=== PATIENT | male | born 1985 | race Caucasian/White ===

== ENCOUNTER 2024-08-15 11:34 | Outpatient (OUT) | payer OTHER, SELFPAY ==
--- NOTE | 2024-08-15 12:56 | P.CN_ITS ---
Consult Note: HPI Data of Consult Patient: new to practice Consult date: 08/15/24 Requesting Physician: Jassi Hart MD Primary Care Provider: Bia Torres NP Consult Narrative Reason for consult: back, leg pain Narrative: 39yom who presents for evaluation. longstanding history of low back, leg pain R>L. previous MRIs showed disc displacement, per patient, though several years since this was completed. recently had steroid injection from pcp, on toradol. has engaged in >6 weeks of provider directed home exercises, without benefit. denies adverse med side effects. cc:: CC: Jassi Hart MD Review of Systems ROS Status of ROS 10 or more systems reviewed and unremark able except as noted in history and below Exam Narrative Exam Narrative: Psych-alert and oriented x 3. Attentive and appropriate, constitutionally normal, displays normal mood and affect per situation. There are no obvious deficits in memory, reasoning, or intellect.? Skin-no obvious rashes, bruising, erythema noted to the patient's area of pain.? Extremities- extremities are warm with minimal edema and palpable pulses. Lumbar-tenderness to palpation noted in the lumbar spine and paraspinal musculature. Pain is elicited with flexion, extension, and lateral rotation of the lumbar spine. Range of motion is diminished with these motions. Facet loading maneuvers are positive. Strength-noted to be unremarkable with the exception of decreased strength rated at 4 out of 5 in right quadriceps femoris, anterior tibialis. Sensory-no notable sensory deficits in the bilateral lower extremities to touch or pinprick in all dermatomal distributions with the exception to decreased sensation to the right L4, 5 dermatomal distribution Coordination remains intact.? Gait remains(non-antalgic. Assessment and Plan Assessment and Plan (1) Lumbar stenosis with neurogenic claudication: Plan 39yom who presents for evaluation. failed conservative measures, as noted. given previous imaging and current symptoms, would like to update lumbar mri without contrast. he is in agreement. meds reviewed, will trial flexeril 10mg bid prn. follow up after imaging.
== END 2024-08-15 11:35 | disposition home or self-care (01) ==
PROVIDERS: PCP Nurse Practitioner; Visit Provider Anesthesiology
DX: M48.062 Spinal stenosis, lumbar region with neurogenic claudication (principal)
CPT/HCPCS: G0463

== ENCOUNTER 2024-09-02 06:45 | Outpatient (OUT) | payer OTHER, SELFPAY ==
--- NOTE | 2024-09-02 06:47 | MR_ITS ---
[place] [id number] Patient Name: YESSICA MANCERA MRN: [id number] date: 1985 Sex: M Assigned Patient Location: MRI Current Patient Location: MRI Accession/Order Number: [id number] Exam Date: 09/02/2024 07:16 Report Date: 09/02/2024 08:28 At the request of: YONAS CORDOVA Procedure: MR lumbar spine wo con EXAMINATION: MR lumbar spine wo con HISTORY: Lumbar Stenosis With Neuro Claudication COMPARISON: No relevant comparison available. TECHNIQUE: A variety of imaging planes and parameters were utilized for visualization of suspected pathology. FINDINGS: For the purposes of numbering, sagittal T2 image # 9 extends from the T11 vertebral body superiorly to the S3 level inferiorly. PARASPINAL AREA: Normal with no visible mass. BONES: Normal alignment with no acute fracture or spondylolisthesis CORD/CAUDA EQUINA: Normal caliber, contour, and signal intensity. DISC LEVELS: 12-L1: No significant disc/facet abnormality, spinal stenosis, or foraminal stenosis. L1-L2: Disc space narrowing and disc desiccation. Posterior disc herniation of the protrusion type extending up to 5.1 mm. No definite central or foraminal stenosis L2-L3: Early degenerative disc disease is present without focal protrusion or neural impingement. L3-L4: Moderate degenerative disc disease is present without visible neural impingement. L4-L5: Disc space narrowing and disc desiccation. Posterior central subligamentous disc herniation extending posteriorly 4 mm with inferior migration up to 4.4 mm, sagittal image #8. No central or foraminal stenosis L5-S1: Moderate disc space narrowing and disc desiccation. Posterior broad-based disc herniation extending up to 4 mm. Facet osteoarthropathy. No central canal or right foraminal stenosis. Mild narrowing of the left neural foramen, sagittal image 4 MR/MR lumbar spine wo con IMPRESSION: Degenerative changes with disc herniations at L1-L2, L4-L5 and L5-S1. Mild left L5-S1 foraminal stenosis Electronically authenticated by: BI COOK Date: 09/02/2024 08:28
--- OUTSIDE RECORDS SUMMARY | 2024-09-02 06:47 | XMS_ITS | CCD ---
Author Organization [facility] Care Team Providers Care Nibbler Operator Name Role Phone MISC, DOCTOR Admitting Unavailable MISC, DOCTOR Attending Unavailable RICHA BETHEA Attending Unavailable OLYA LEE Attending Unavailable OLYA LEE Attending Unavailable Adrian Malhotra DO Primary Care Provider Olya Lee NP Unavailable Hailey NGUYEN, Jassi Paris Attending Unavailable Medications Current Medications Medication Drug Class(es) Dates Sig (Normalized) Sig (Original) aspirin 500 mg / caffeine 32.5 mg oral tablet (12 sources) Platelet Aggregation Inhibitor, Nonsteroidal Anti-inflammatory Drug, Central Nervous System Stimulant, Methylxanthine Aspirin-Caffeine (Teresa Back & Body) 500-32.5 MG tablet Take by mouth. Active famotidine 20 mg oral tablet (6 sources) Histamine-2 Receptor Antagonist Start: 09-29-2023 End: 05-30-2024 take 1 tablet by mouth in the morning famotidine (Pepcid) 20 MG tablet Indications: Gastroesophageal reflux disease, unspecified whether esophagitis present Take 1 tablet (20 mg) by mouth in the morning and 1 tablet (20 mg) before bedtime. 60 tablet 09/29/2023 05/30/2024 Discontinued meloxicam 15 mg disintegrating oral tablet (16 sources) Nonsteroidal Anti-inflammatory Drug Start: 08-22-2024 End: 09-21-2024 take 1 tablet by mouth once daily meloxicam (Mobic) 15 MG tablet Indications: Displacement of lumbar intervertebral disc without myelopathy Take 1 tablet (15 mg) by mouth Daily 30 tablet 2 08/22/2024 09/21/2024 Active Start: 06-09-2023 End: 08-22-2024 take 1 tablet by mouth once daily Meloxicam 15 MG tablet dispersible Indications: Displacement of lumbar intervertebral disc without myelopathy Take 15 mg by mouth Daily When the ketorolac tabs are done 30 tablet 2 08/22/2024 Active Nutritional Supplements (CRISTA NT FORMULA PO) (12 sources) Nutritional Supp lements (JOINT FORMULA PO) Take by mouth tamiflex Active Nutritional Supp lements (JOINT FORMULA PO) Take by mouth. Active pantoprazole 40 mg delayed release oral tablet (6 sources) Proton Pump Inhibitor Start: 09-29-2023 End: 09-28-2024 take 1 tablet by mouth before mealtime pantoprazole (Protonix) 40 MG EC tablet Indications: Gastroesophageal reflux disease, unspecified whether esophagitis present Take 1 tablet (40 mg) by mouth in the morning. Take before meals. Do not crush, chew, or split.. 30 tablet 1 09/29/2023 05/30/2024 Discontinued sucralfate 1000 mg oral tablet (6 sources) Aluminum Complex Start: 09-29-2023 End: 05-30-2024 take 1 tablet by mouth at bedtime sucralfate (Carafate) 1 g tablet Indications: Gastroesophageal reflux disease, unspecified whether esophagitis present Take 1 tablet (1 g) by mouth in the morning and 1 tablet (1 g) at noon and 1 tablet (1 g) in the evening and 1 tablet (1 g) before bedtime. Take before meals. 30 tablet 09/29/2023 05/30/2024 Discontinued tiZANidine 4 mg oral tablet (6 sources) Central alpha-2 Adrenergic Agonist Start: 06-09-2023 End: 05-30-2024 tiZANidine (Zanaflex) 4 MG tablet Indications: Displacement of lumbar intervertebral disc without myelopathy Take 1 tablet (4 mg) by mouth as needed at bedtime for muscle spasms. 30 tablet 1 06/09/2023 05/30/2024 Discontinued Completed/Discontinued Medications Medication Drug Class(es) Dates Sig (Normalized) Sig (Original) ketorolac tromethamine 10 mg oral tablet (11 sources) Nonsteroidal Anti-inflammatory Drug, Cyclooxygenase Inhibitor Start: 08-22-2024 End: 08-27-2024 take 1 tablet by mouth every six hours for pain ketorolac (Toradol) 10 MG tablet Indications: Displacement of lumbar intervertebral disc without myelopathy Take 1 tablet (10 mg) by mouth every 6 (six) hours if needed for moderate pain for up to 5 days 20 tablet 08/22/2024 08/27/2024 Start: 08-10-2024 End: 08-15-2024 take 1 tablet by mouth every six hours for pain ketorolac (Toradol) 10 MG tablet Indications: Right-sided low back pain with right-sided sciatica, unspecified chronicity , Displacement of lumbar intervertebral disc without myelopathy Take 1 tablet (10 mg) by mouth every 6 (six) hours if needed for moderate pain for up to 5 days 20 tablet 08/10/2024 08/15/2024 Active Start: 08-10-2024 End: 08-10-2024 30 mg, Intramuscular, Once, On Thu08/10/24 at 1415, For 1 dose, Max daily dose: 120 mg. Max duration: 5 days total Start: 05-30-2024 End: 06-04-2024 ketorolac (Toradol) injectio n 30 mg 1 ml triamcinolone acetonide 40 mg/ml prefilled syringe (6 sources) Corticosteroid Start: 08-10-2024 End: 08-10-2024 triamcinolone acetonide (Kenalog-40) injection 40 mg Start: 08-10-2024 End: 08-10-2024 inject 40 mg by intramuscular injection once 40 mg, Intramuscular, Once, On Thu08/10/24 at 1415, For 1 dose Start: 05-30-2024 triamcinolone acetonide (Kenalog-40) injection 40 mg Start: 05-30-2024 triamcinolone acetonide (Kenalog-40) injection 40 mg Problems Active Problems Problem Classification Problem Date Documented Date Episodic/Chronic Diabetes mellitus without complication (2 sources) Abnormal glucose level; Translations: [Other abnormal glucose] 05-30-2024 Episodic Nutritional deficiencies (2 sources) Vitamin D deficiency; Translations: [Vitamin D deficiency, unspecified] 05-30-2024 Chronic Other non-traumatic joint disorders (2 sources) Chronic pain of left upper limb; Translations: [Pain in left shoulder] 05-30-2024 Episodic Residual codes; unclassified (12 sources) Patient encounter status; Translations: [Encounter for procedure for purposes other than remedying health state, unspecified] 05-05-2024 Episodic Spondylosis; intervertebral disc disorders; other back problems (20 sources) Other intervertebral disc degeneration, lumbar region; Translations: [Displacement of lumbar intervertebral disc without myelopathy] Onset: 02-02-2017 Resolved: 05-30-2024 08-11-2024 Chronic Spondylosis; intervertebral disc disorders; other back problems (6 sources) Acute back pain with sciatica; Translations: [Lumbago co-occurrent with right-side sciatica] 08-11-2024 Episodic Past or Other Problems Problem Classification Problem Date Documented Da te Episodic/Chronic Disorders of lipid metabolism (12 sources) Dyslipidemia; Translations: [Hyperlipidemia, unspecified] Onset: 02-13-2023 Resolved: 05-30-2024 05-30-2024 Chronic Mood disorders (12 sources) Mood disorders Onset: 02-19-2023 02-19-2023 Neoplasms of unspecified nature or uncertain behavior (2 sources) Neoplasm of skin; Translations: [Neoplasm of unspecified behavior of bone, soft tissue, and skin] 05-05-2024 Episodic Other and unspecified benign neoplasm (2 sources) Melanocytic nevus of trunk; Translations: [Melanocytic nevi of trunk] 05-05-2024 Episodic Other and unspecified benign neoplasm (2 sources) Skin lesion; Translations: [Hemangioma of skin and subcutaneous tissue] 05-05-2024 Episodic Other skin disorders (2 sources) Lentiginosis; Translations: [Other melanin hyperpigmentation] 05-05-2024 Episodic Vital Signs Date Time Vital Sign Value Performing Clinician Faci lity 08-10-2024 13:160500 Body height 182.9 cm Olya Lee NP Work Phone: [facility] 08-10-2024 13:16-0500 Body mass index (BMI) [Ratio] 32.96 kg/m2 Olya Lee [employer] NETWORK INSTALLER Work Phone: [facility] 08-10-2024 13:16-0500 Body temperature 98.29 [degF] Olya Lee [employer] INSTALLER Work Phone: [facility] 08-10-2024 13:16-0500 Body weight 110.22 kg Olya Lee [employer] INST[employer]ER Work Phone: [facility] 08-10-2024 13:16-0500 Diastolic blood pressure 74 mm[Hg] Olya Lee [employer]WORK INSTALLER Work Phone: [facility] 08-10-2024 13:16-0500 Heart rate 87 /min Olya Lee [employer] INSTALLER Work Phone: [facility] 08-10-2024 13:16-0500 SaO2% (BldA) [Mass fraction] 97 % Olya Lee [employer] INSTALLER Work Phone: [facility] 08-10-2024 13:16-0500 Systolic blood pressure 120 mm[Hg] Olya Lee [employer] INSTALLER Work Phone: [facility] 05-30-2024 08:25-0400 Body mass index (BMI) [Ratio] 32.55 kg/m2 Olya Lee [employer] INSTALLER Work Phone: [facility] 05-30-2024 08:25-0400 Body temperature 99.19 [degF] Olya Lee [employer]WORK INSTALLER Work Phone: [facility] 05-30-2024 08:25-0400 Body weight 108.86 kg Olya Lee [employer] INSTALLER Work Phone: [facility] 05-30-2024 08:25-0400 Diastolic blood pressure 88 mm[Hg] Olya Lee [employer]WORK INSTALLER Work Phone: [facility] 05-30-2024 08:25-0400 Heart rate 87 /min Olya Lee [employer]WORK INSTALLER Work Phone: [facility] 05-30-2024 08:25-0400 SaO2% (BldA) [Mass fraction] 97 % Olya Lee [employer]WORK INSTALLER Work Phone: [facility] 05-30-2024 08:25-0400 Systolic blood pressure 122 mm[Hg] Olya Lee [employer]WORK INSTALLER Work Phone: [facility] Encounters Encounter Date Encounter Type Care Provider Facility Start: 08-22-2024 End: 08-30-2024 Refill Natalie Adams LPN Work Phone: [facility] Comment on above: Displacement of lumb ar intervertebral disc without myelopathy Start: 08-22-2024 End: 08-22-2024 Refill Olya Lee [employer] INSTALLER Work Phone: [facility] Comment on above: Displacement of lumb ar intervertebral disc without myelopathy Start: 08-15-2024 End: 08-15-2024 Telephone encounter Olya Lee [employer] INSTALLER Work Phone: [facility] Comment on above: Back Pain Start: 08-15-2024 End: 08-15-2024 ambulatory Jassi Hart MD Facility:[facility] Start: 08-10-2024 End: 08-10-2024 Office outpatient visit 15 minutes Olya Lee [employer]WORK INSTALLER Work Phone: [facility] Comment on above: Right-sided low back pain with right-sided sciatica, unspecified chronicity (Primary Dx); Displacement of lumbar intervertebral disc without myelopathy; Acute bilateral low back pain with bilateral sciatica Start: 08-10-2024 End: 08-10-2024 ambulatory OLYA LEE Not Available Start: 05-30-2024 End: 05-30-2024 Bamboo flowsheet Olya Lee [employer] INSTALLER Work Phone: [facility] Start: 05-30-2024 End: 05-30-2024 Bamboo flowsheet Olya Lee [employer]WORK INSTALLER Work Phone: [facility] Start: 05-30-2024 End: 05-30-2024 Patient encounter status Olya Lee [employer] INSTALLER Work Phone: [facility] Start: 05-30-2024 End: 05-30-2024 Periodic preventive med est patient 18-39 yrs Olya Lee [employer]WORK INSTALLER Work Phone: [facility] Comment on above: Wellness examination (Primary Dx); Screening for cardiovascular condition; Blood tests for routine general physical examination; Screening for thyroid disorder; Vitamin D deficiency; Encounter for vitamin deficiency screening; Screening for lipid disorders; Screening for diabetes mellitus (DM); Abnormal glucose; Displacement of lumbar intervertebral disc without myelopathy; Chronic left shoulder pain Start: 05-30-2024 End: 05-30-2024 Physical examination Olya Lee [employer] INSTALLER Work Phone: [facility] Start: 05-30-2024 End: 05-30-2024 ambulatory OLYA LEE Not Available Start: 05-05-2024 End: 05-05-2024 Office outpatient new 30 minutes Richa [place] IMPROVEMENT LEAD-MORTGAGE ADVISOR Work Phone: [facility] Comment on above: Melanocytic nevus of trunk (Primary Dx); Lentigines; Angioma of skin; Neoplasm of skin; Surgery, elective Start: 05-05-2024 End: 05-05-2024 ambulatory RICHA [place] Not Available Start: 05-05-2024 End: 05-05-2024 Bamboo flowsheet Richa [place] IMPROVEMENT LEAD-MORTGAGE ADVISOR Work Phone: [facility] Start: 05-05-2024 End: 05-05-2024 Bamboo flowsheet Richa [place] IMPROVEMENT LEAD-MORTGAGE ADVISOR Work Phone: [facility] Start: 12-01-2019 End: 06-11-2020 Patient encounter procedure [facility] [place]: Plan of Treatment Date Care Activity Detail Author Start: 05-08-2025 End: 05-08-2025 Patient encounter procedure 05/08/2025 2:20 PM EDT Office Visit [facility] [address] [place] [address] Richa Bethea, IMPROVEMENT LEAD-MORTGAGE ADVISOR [address] [place] [address] [facility] Start: 10-05-2024 Influenza vaccination Influenza Vacc ine (#1) [facility] Comment on above: Postponed from 05/01 (Patient Refused) Start: 05-30-2024 End: 05-30-2025 25-hydroxyvitamin D3 [Mass/volume] in Serum or Plasma Vitamin D 25 hydroxy Total Lab Routine Blood tests for routine general physical examination Vitamin D deficiency Encounter for vitamin deficiency screening Expected: 05/30/2024 (Approximate), Expires: 05/30/2025 [facility] Comment on above: Expected: 05/30/2024 (Approximate), Expires: 05/30/2025 Start: 05-30-2024 End: 05-30-2025 CBC W Auto Differential panel - Blood CBC and differential Lab Routine Screening for cardiovascular condition Blood tests for routine general physical examination Expected: 05/30/2024 (Approximate), Expires: 05/30/2025 [facility] Comment on above: Expected: 05/30/2024 (Approximate), Expires: 05/30/2025 Start: 05-30-2024 End: 05-30-2025 Comprehensive metabolic 2000 panel - Serum or Plasma Comprehensive metabolic panel Lab Routine Screening for cardiovascular condition Blood tests for routine general physical examination Expected: 05/30/2024 (Approximate), Expires: 05/30/2025 [facility] Work Phone: Comment on above: Expected: 05/30/2024 (Approximate), Expires: 05/30/2025 Start: 05-30-2024 End: 05-30-2025 Hemoglobin A1c/Hemoglobin.total in Blood Hemoglobin A1c Lab Routine Blood tests for routine general physical examination Screening for diabetes mellitus (DM) Abnormal glucose Expected: 05/30/2024 (Approximate), Expires: 05/30/2025 [facility] Comment on above: Expected: 05/30/2024 (Approximate), Expires: 05/30/2025 Start: 05-30-2024 End: 05-30-2025 Lipid 1996 panel - Serum or Plasma Lipid panel Lab Routine Screening for cardiovascular condition Blood tests for routine general physical examination Screening for lipid disorders Expected: 05/30/2024 (Approximate), Expires: 05/30/2025 [facility] Comment on above: Expected: 05/30/2024 (Approximate), Expires: 05/30/2025 Start: 05-30-2024 End: 05-30-2025 TSH W/REFLEX TO FT4 TSH W/REFLEX TO FT4 Lab Routine Blood tests for routine general physical examination Screening for thyroid disorder Expected: 05/30/2024 (Approximate), Expires: 05/30/2025 [facility] Comment on above: Expected: 05/30/2024 (Approximate), Expires: 05/30/2025 Start: 05-30-2024 End: 05-30-2024 Patient encounter procedure 05/30/2024 8:30 AM EDT Office Visit [facility] [address] [place] [id number] Olya Lee, HARISH [address] [place] [address] Screening for cardiovascular condition; Blood tests for routine general physical examination; Screening for thyroid disorder; Other fatigue; Vitamin D deficiency; Encounter for vitamin deficiency screening; Screening for lipid disorders; Screening for diabetes mellitus (DM); Abnormal glucose [facility] Comment on above: Screening for cardio vascular condition; Blood tests for routine general physical examination; Screening for thyroid disorder; Other fatigue; Vitamin D deficiency; Encounter for vitamin deficiency screening; Screening for lipid disorders; Screening for diabetes mellitus (DM); Abnormal glucose Start: 05-05-2024 End: 05-05-2024 Patient encounter procedure 05/05/2024 2:25 PM EDT Office Visit [facility] [address] [place] [id number] Richa Bethea IMPROVEMENT LEAD-MORTGAGE ADVISOR [address] [place] [address] Arrived [facility] Comment on above: Arrived Start: 05-01-2024 Influenza vaccination Influenza Vacc ine (#1) [facility] Immunizations Immunization Date Immunization Notes Care Provider Fa [facility] 02-13-2023 tetanus toxoid, redu nenita diphtheria toxoid, and acellular pertussis vaccine, adsorbed Richa Bethea IMPROVEMENT LEAD-MORTGAGE ADVISOR Work Phone: [facility] 04-05-2021 Joseph SARS-CoV-2 Richa hudson IMPROVEMENT LEAD-MORTGAGE ADVISOR Work Phone: [facility] Healthcare Payers Date Payer Category Payer Private Health Insurance [employer] [id number] 2024 Unknown [id number] 2023 Unknown [id number] 1984 Unknown [id number] 1984 Unknown [id number] 1984 Unknown [id number] 1984 Unknown [id number] 1984 Unknown [id number] 1959 Unknown [id number] Social History Date Type Detail Facility Start: 02-13-2023 Tobacco smoking status MIIS Never sm oked tobacco [facility] Start: 02-13-2023 Tobacco use and exposure Forme r smokeless tobacco user [facility] Start: 05-30-2024 End: 08-10-2024 Alcoholic beverage intake Current drinker of alcohol (finding) [facility] Start: 05-29-2024 End: 08-10-2024 Alcoholic beverage intake [facility] Start: 05-29-2024 End: 05-30-2024 [id number] Health Literacy [facility] How often do you nee d to have someone help you when you read instructions, pamphlets, or other written material from your doctor or pharmacy [SILS] Never [facility] Do you belong to any clubs or organizations such as mandaeism groups, unions, fraternal or athletic groups, or school groups? Yes [facility] Are you now , , , , never or living with a partner? [facility] How often to you hav e a drink containing alcohol? 2-4 times a month [facility] How many standard dr inks containing alcohol do you have on a typical day? 3 or 4 [facility] How often do you hav e 6 or more drinks on 1 occasion? Never [facility] Do you feel stress - tense, restless, nervous, or anxious, or unable to sleep at night because your mind is troubled all the time - these days [OSQ] Not at all [facility] (I/We) worried [facility] er (my/our) food would run out before (I/we) got money to buy more. Never true [facility] In the past 12 month s, was there a time when you were not able to pay the mortgage or rent on time? No [facility] Start: 06-08-2023 Alcohol Comment 1-2 drinks les s than monthly in the past year [facility] Start: 1985 Sex assigned at Not on file [facility] How often to you hav e a drink containing alcohol? Monthly or less [facility] How many standard dr inks containing alcohol do you have on a typical day? 1 or 2 [facility] Clinical Notes 05-05-2024 to 08-30-2024 Telephone Encounter - Bia Torres NP - 08/30/2024 1:14 PM ESTTelephone Encounter - Bia Torres NP - 08/30/2024 1:14 PM ESTTelephone Encounter - Bia Torres NP - 08/22/2024 3:41 PM EST Note Date & Type Note Facility 08-30-2024 Telephone encount er Note Please put torodal 60mg in , bia gave 08-22-24 rt buttock [facility] 08-30-2024 Miscellaneous Notes Formattin g of this note might be different from the original. Please put torodal 60mg in , bia gave 08-22-24 rt buttock Daughter / in , miserable with back pain. Was doing better this month since he saw . Torodal helped at that time. Phone call to pt, deep searing pain in lumbar area, radiates to rt leg. Is able to walk but uncomfortable. Has not had meloxicam today. As he lives near this provider i will give him torodal IM at home, and then call in 20 tabs of the oral. He is aware to hold the meloxicam. Phone call to the [facility] and they are ok with this.spoke with catherine. Pt reached out to them earlier today, provider not available. documented in this encounter [facility] 08-22-2024 Telephone encount er Note sent [facility] 08-22-2024 Miscellaneous Notes Formattin g of this note might be different from the original. sent documented in this encounter [facility] 08-22-2024 Telephone encount er Note Daughter / in , miserable with back pain. Was doing better this month since he saw . Torodal helped at that time. Phone call to pt, deep searing pain in lumbar area, radiates to rt leg. Is able to walk but uncomfortable. Has not had meloxicam today. As he lives near this provider i will give him torodal IM at home, and then call in 20 tabs of the oral. He is aware to hold the meloxicam. Phone call to the [facility] and they are ok with this.spoke with catherine. Pt reached out to them earlier today, provider not available. [facility] 08-15-2024 Telephone encount er Note Pt was seen today, states he was prescribed a muscle relaxor and their office is going to try and get an updated MRI ordered pending insurance approval [facility] 08-15-2024 Miscellaneous Notes Formattin g of this note might be different from the original. Pt was seen today, states he was prescribed a muscle relaxor and their office is going to try and get an updated MRI ordered pending insurance approval Did he get scheduled with pain management? documented in this encounter [facility] 08-15-2024 Telephone encount er Note Did he get scheduled with pain management? [facility] 08-10-2024 History of Presen t illness Narrative Dereje Ramos is a 39 y.o. male presents with chief complaint of Back Pain HPI: HPI Patient Reported S/S to Nurse: Reviewed [facility]- BACK PAIN Started between shoulder blades C/o lower back pain aggravated by working in the cold 1-2 weeks ago, describes tightness radiating down posterior legs Tried taking 2 tylenol Heat temporary effective 05/30/2024- Torodol IM and kenalog IM in OV, reordered meloxicam at that time for 90 days 11/14/2019 lumbar MR showed multilevel disc bulging, left L5/S1 lateral recess disc herniation, minimal stenosis LABS- 05/2024 WELLNESS- 05/30/2024 DENTIST- none BODY MECHANIC- [facility]/[place] SR ACCOUNT EXECUTIVE- [place] for insoles LAW CLERK- Richa Bethea/[facility] SUBJECTIVE: MEDICATIONS: Current Outpatient Medications Medication Instructions Aspirin-Caffeine (Teresa Back & Body) 500-32.5 MG tablet Take by mouth. ketorolac (TORADOL) 10 mg, Oral, Every 6 hours PRN Meloxicam 15 mg, Oral, Daily, When the ketorolac tabs are done Nutritional Supplements (JOINT FORMULA PO) Take by mouth tamiflex ALLERGIES: No Known Allergies SURGICAL HISTORY: Past Surgical History: Procedure Laterality Date APPENDECTOMY [address] Arceo FAMILY HISTORY: Family History Problem Relation Name Age of Onset No Known Problems Brother Heart attack Maternal Grandfather No Known Problems Daughter Melanoma Neg Hx SOCIAL HISTORY: Social History Tobacco Use Smoking status: Never Smokeless tobacco: Former Vaping Use Vaping status: Never Used Substance Use Topics Alcohol use: Yes Alcohol/week: 4.0 standard drinks of alcohol Types: 4 Cans of beer per week Comment: 1-2 drinks less than monthly in the past year Drug use: Never Depression: Not at risk (05/30/2024) PHQ-2 PHQ-2 Score: 0 REVIEW OF SYMPTOMS: Review of Systems Constitutional: Negative for activity change, appetite change, chills, diaphoresis, fatigue and fever. Respiratory: Negative for cough, chest tightness, shortness of breath and wheezing. Cardiovascular: Negative for chest pain, palpitations and leg swelling. Gastrointestinal: Negative for diarrhea. Genitourinary: Negative for difficulty urinating and dysuria. Denies incontinence of bowel or bladder Psychiatric/Behavioral: Negative. OBJECTIVE: Visit Vitals BP 120/74 (BP Location: Right arm, Patient Position: Sitting, BP Cuff Size: Large adult) Pulse 87 Temp 98.3 F (Tympanic) Ht 6' Wt 243 lb SpO2 97% BMI 32.96 kg/m Smoking Status Never BSA 2.36 m Physical Exam Vitals and nursing note reviewed. Constitutional: Appearance: Normal appearance. He is not ill-appearing. HENT: Head: Normocephalic and atraumatic. Cardiovascular: Rate and Rhythm: Normal rate and regular rhythm. Pulses: Normal pulses. Heart sounds: Normal heart sounds. Pulmonary: Effort: Pulmonary effort is normal. No respiratory distress. Breath sounds: Normal breath sounds. No wheezing. Chest: Chest wall: No tenderness. Musculoskeletal: General: Tenderness present. Thoracic back: Normal. Lumbar back: Spasms and tenderness present. No swelling, edema, deformity, signs of trauma, lacerations or bony tenderness. Normal range of motion. Right lower leg: No edema. Left lower leg: No edema. Comments: Flexion at waist wnl-pain with prolonged sitting or standing and extreme flexion Skin: General: Skin is warm and dry. Neurological: General: No focal deficit present. Mental Status: He is alert and oriented to person, place, and time. Mental status is at baseline. Sensory: No sensory deficit. Motor: No weakness. Coordination: Coordination normal. Gait: Gait normal. Psychiatric: Mood and Affect: Mood normal. Behavior: Behavior normal. Thought Content: Thought content normal. Judgment: Judgment normal. ASSESSMENT AND PLAN: Assessment/Plan Diagnoses and all orders for this visit: Right-sided low back pain with right-sided sciatica, unspecified chronicity - ketorolac (Toradol) injection 30 mg - triamcinolone acetonide (Kenalog-40) injection 40 mg - ketorolac (Toradol) 10 MG tablet; Take 1 tablet (10 mg) by mouth every 6 (six) hours if needed for moderate pain for up to 5 days Heat Massage Tens unit Displacement of lumbar intervertebral disc without myelopathy - Ambulatory referral to Pain Medicine; Future - ketorolac (Toradol) injection 30 mg - triamcinolone acetonide (Kenalog-40) injection 40 mg - ketorolac (Toradol) 10 MG tablet; Take 1 tablet (10 mg) by mouth every 6 (six) hours if needed for moderate pain for up to 5 days Acute bilateral low back pain with bilateral sciatica - Ambulatory referral to Pain Medicine; Future Follow up in about 3 months (around 11/08/2024). documented in this encounter [facility] 05-30-2024 History of Presen t illness Narrative Dereje Ramos is a 38 y.o. male presents with chief complaint of Shoulder Pain and wellness HPI: HPI Patient Reported S/S to Nurse: Reviewed [facility]- SHOULDER PAIN C/o left shoulder pain x 2 months, describes as a sharp burning pain. Reports having full ROM but with pain Denies radiation of pain, numbness, tingling Tried ice without improvement Has not tried OTC meds for pain REFILL Requesting meloxicam for back pain. States he only takes it in the winter when the pain is worse Walked to lab after appt LABS- 01/2023; willing to update today WELLNESS- 05/30/2024 DENTIST- none BODY MECHANIC- Daria/Brandon SR ACCOUNT EXECUTIVE- Ute for insoles LAW CLERK- Richa Bethea/[facility] SUBJECTIVE: MEDICATIONS: Current Outpatient Medications Medication Instructions Aspirin-Caffeine (Te[facility]) 500-32.5 MG tablet Oral Meloxicam 15 mg, Oral, Daily, When the ketorolac tabs are done Nutritional Supplements (JOINT FORMULA PO) Oral ALLERGIES: No Known Allergies SURGICAL HISTORY: Past Surgical History: Procedure Laterality Date APPENDECTOMY 2011 [address] INJE[address] Arceo FAMILY HISTORY: Family History Problem Relation Name Age of Onset No Known Problems Brother Heart attack Maternal Grandfather No Known Problems Daughter Melanoma Neg Hx SOCIAL HISTORY: Social History Tobacco Use Smoking status: Never Smokeless tobacco: Former Vaping Use Vaping status: Never Used Substance Use Topics Alcohol use: Yes Alcohol/week: 4.0 standard drinks of alcohol Types: 4 Cans of beer per week Comment: 1-2 drinks less than monthly in the past year Drug use: Never Depression: Not at risk (05/30/2024) PHQ-2 PHQ-2 Score: 0 REVIEW OF SYMPTOMS: Review of Systems Constitutional: Negative for activity change, appetite change, fatigue and fever. HENT: Negative for hearing loss, trouble swallowing and voice change. Eyes: Negative for visual disturbance. Respiratory: Negative for cough, chest tightness, shortness of breath and wheezing. Cardiovascular: Negative for chest pain, palpitations and leg swelling. Gastrointestinal: Negative for constipation, diarrhea, nausea and vomiting. Genitourinary: Negative for difficulty urinating, frequency and urgency. Musculoskeletal: Positive for arthralgias. Negative for gait problem and myalgias. Neurological: Negative for dizziness, syncope, weakness, light-headedness, numbness and headaches. Psychiatric/Behavioral: Negative for agitation, behavioral problems, confusion, decreased concentration, dysphoric mood, hallucinations, self-injury, sleep disturbance and suicidal ideas. The patient is not nervous/anxious and is not hyperactive. Endocrine: Negative for cold intolerance, heat intolerance, polydipsia, polyphagia and polyuria. Allergic/Immunologic: Negative for environmental allergies. OBJECTIVE: Visit Vitals BP 122/88 Pulse 87 Temp 99.2 F (Tympanic) Wt 240 lb SpO2 97% BMI 32.55 kg/m Smoking Status Never BSA 2.35 m Physical Exam Vitals and nursing note reviewed. Constitutional: Appearance: Normal appearance. He is normal weight. HENT: Head: Normocephalic and atraumatic. Right Ear: Tympanic membrane, ear canal and external ear normal. Left Ear: Tympanic membrane, ear canal and external ear normal. Nose: Nose normal. Mouth/Throat: Mouth: Mucous membranes are moist. Pharynx: Oropharynx is clear. No oropharyngeal exudate or posterior oropharyngeal erythema. Eyes: Extraocular Movements: Extraocular movements intact. Conjunctiva/sclera: Conjunctivae normal. Pupils: Pupils are equal, round, and reactive to light. Cardiovascular: Rate and Rhythm: Normal rate and regular rhythm. Pulses: Normal pulses. Heart sounds: Normal heart sounds. No murmur heard. No friction rub. No gallop. Pulmonary: Effort: Pulmonary effort is normal. No respiratory distress. Breath sounds: Normal breath sounds. No wheezing. Chest: Chest wall: No tenderness. Abdominal: General: Abdomen is flat. Bowel sounds are normal. There is no distension. Palpations: Abdomen is soft. Tenderness: There is no abdominal tenderness. There is no guarding. Musculoskeletal: General: No swelling, deformity or signs of injury. Normal range of motion. Right shoulder: Normal. Left shoulder: Tenderness present. No swelling, deformity or crepitus. Normal range of motion. Normal strength. Normal pulse. Cervical back: Normal range of motion and neck supple. Right lower leg: No edema. Left lower leg: No edema. Lymphadenopathy: Cervical: No cervical adenopathy. Skin: General: Skin is warm and dry. Capillary Refill: Capillary refill takes less than 2 seconds. Coloration: Skin is not jaundiced. Findings: No bruising, erythema or rash. Neurological: General: No focal deficit present. Mental Status: He is alert and oriented to person, place, and time. Mental status is at baseline. Cranial Nerves: No cranial nerve deficit. Sensory: No sensory deficit. Motor: No weakness. Coordination: Coordination normal. Gait: Gait normal. Psychiatric: Mood and Affect: Mood normal. Behavior: Behavior normal. Thought Content: Thought content normal. Judgment: Judgment normal. ASSESSMENT AND PLAN: Assessment/Plan Diagnoses and all orders for this visit: Wellness examination Wellness performed at office visit today. Height, weight, BMI, problem list, and immunizations records reviewed. Dental care discussed with patient. Encouraged annual vision screenings and semi-annual dental care. Encouraged to eat a diet that is rich in plant-based foods and lean protein. Encouraged regular periods of exercise. Limit or eliminate junk food and sources of excess calories. Encouraged to maintain open communication with provider regarding any changes in condition. Encouraged 150 minutes of exercise weekly or amount appropriate to current level of function. Discussed family/friend/social support and importance of maintaining emotional connections. Follow up as discussed. Patient verbalized understanding of importance of keeping open communication with health care providers. Screening for cardiovascular condition - Comprehensive metabolic panel; Future - CBC and differential; Future - Lipid panel; Future Blood tests for routine general physical examination - Comprehensive metabolic panel; Future - TSH W/REFLEX TO FT4; Future - CBC and differential; Future - Vitamin D 25 hydroxy Total; Future - Lipid panel; Future - Hemoglobin A1c; Future Screening for thyroid disorder - TSH W/REFLEX TO FT4; Future Vitamin D deficiency - Vitamin D 25 hydroxy Total; Future Encounter for vitamin deficiency screening - Vitamin D 25 hydroxy Total; Future Screening for lipid disorders - Lipid panel; Future Screening for diabetes mellitus (DM) - Hemoglobin A1c; Future Abnormal glucose - Hemoglobin A1c; Future Displacement of lumbar intervertebral disc without myelopathy Comments: kenalog and toradol IM, then torodal pills, muscle relaxer at bedtime. 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 documented in this encounter [facility] 05-05-2024 History of Presen t illness Narrative Images from the original note were not included. Skin Check Location: Patient requests a full body skin examination Dermatologic history: no history of skin cancer, no history of atypical moles, no family history of melanoma Last visit: first skin exam New patient Lesions: Location: face Duration: less than 6 months Quality: denies pain, denies itch, denies bleeding Modifying factors: none Associated symptoms: white in color Treatments: none Lesion # 2: Location: chest and back Duration: years Quality: denies pain, denies itch, denies bleeding Modifying factors: none Associated symptoms: red spots Treatments: none Location #3:right hand 4 th digit Duration: since yesterday Quality: painful to touch Modifying factors: Daughter drop a glass, patient thinks he has glass or a piece of metal in his finger Associated symptoms: scrap Treatments: alcohol All pertinent medical history, medications, and allergies were reviewed. General Exam: alert , oriented to person, place, and time , normal affect, well appearing Unaccompanied Areas not examined despite medical recommendation: Scalp, Examined Right leg Examined Head, Face Examined Left leg Examined Neck Examined Right foot Examined Chest Examined Left foot Examined Back Examined Buttocks Examined Abdomen Examined Digits,nails: Examined Right arm Examined Left arm Examined Lymphatics: Not examined Hands Examined 1. Melanocytic nevus of trunk Torso - Posterior (Back) Scattered benign appearing, regular brown to light brown melanocytic papules and macules with similar morphology Counseled regarding these benign growths. Rarely, a nevus can develop into malignant melanoma, so any changing nevi should be promptly re-evaluated. 2. Lentigines (3) Left Shoulder - Anterior, Right Shoulder - Anterior, Torso - Posterior (Back) Scattered granaod macules in sun-exposed areas. The patient was informed that lentigines are benign pigmented lesions that occur on sun-exposed and sun-damaged skin. No treatment is necessary. Recommended regular use of broad spectrum sunscreen SPF 30 or higher 3. Angioma of skin (3) Abdomen (Lower Torso, Anterior), Chest (Upper Torso, Anterior), Torso - Posterior (Back) Scattered noonan-red papule(s). The patient was informed that angiomas are benign growths on the the skin. No treatment is necessary. 4. Neoplasm of skin Right Hand - Anterior Scrap noted No foreign object noted today. If area fails to resolve follow up in office. 5. Surgery, elective Head - Anterior (Face) Small white or yellow papules. Reassure, benign. Discussed milia may self resolve or they can be removed for a cosmetic fee $30.00. Milial Removal Indication: Milia Location: left cheek and right cheek Preparation/Procedure: Area cleansed with alcohol, Milia extracted with Schamberg comedone extractor. Post Procedure: Area cleansed. Next Visit: 1 year skin exam documented in this encounter [facility] Evaluation note Diagnosis Right-sided low back pain with right-sided sciatica, unspecified chronicity- Primary Displacement of lumbar intervertebral disc without myelopathy Acute bilateral low back pain with bilateral sciatica documented [facility]* Diagnosis Melanocytic nevus of trunk- Primary Benign neoplasm of skin of trunk, except scrotum Lentigines Angioma of skin Neoplasm of skin Surgery, elective Unspecified elective surgery for purposes other than remedying health states documented in this encounter [facility]* Diagnosis Wellness examination- Primary Screening for cardiovascular condition Screening for other and unspecified cardiovascular conditions Blood tests for routine general physical examination Laboratory examination ordered as part of a routine general medical examination Screening for thyroid disorder Vitamin D deficiency Encounter for vitamin deficiency screening Screening for lipid disorders Screening for diabetes mellitus (DM) Screening for diabetes mellitus Abnormal glucose Displacement of lumbar intervertebral disc without myelopathy Chronic left shoulder pain Pain in joint, shoulder region documented [facility] this [facility] Diagnosis Displacement of lumbar intervertebral disc without myelopathy documented [facility]* Diagnosis Displacement of lumbar intervertebral disc without myelopathy documented [facility]* Diagnosis Displacement of lumbar intervertebral disc without myelopathy- Primary documented in this encounter [facility] Summary Purpose Family History No Family History Records FoundNo Family History Records FoundNo Family History Records Found Advance Directives No Advanced Directives Records FoundNo Advanced Directives Records FoundNo Advanced Directives Records Found Additional Source Comments (unrecognized sect ion and content) No Status Records FoundNo Status Records FoundNo Status Records Found INFORMATION SOURCE (unrecogn ized section and content) DATE CREATED AUTHOR 06/12/2020 [facility] DATE CREATED AUTHOR AUTHOR'S ORGANIZ ATION 08/13/2024 [facility] DATE CREATED AUTHOR AUTHOR'S ORGANIZ ATION 08/24/2024 [facility] Reason for Visit (unrecogniz ed section and content) Reason Comments Back Pain Reason Onset Date Comments Back Pain 08/15/2024 Reason Comments Suspicious Skin Lesion Skin Check Reason Comments Shoulder Pain wellness Reason Onset Date Comments Med Refill 08/22/2024 Reason Comments Med Change Request Care Teams (unrecognized sec tion and content) Nibbler Operator Relationship Specialty Start Date End Date Adrian Malhotra DO [address] [place], [place] [id number] PCP - General Family Medicine 02/13/23 Olya Lee, DISH NETWORK INSTALLER [address] [place] [address] Nurse Practitioner Family Medicine 02/13/23 Nibbler Operator Relationship Specialty Start Date End Date Adrian Malhotra DO [address] [place] [address] PCP - General Family Medicine 02/13/23 Olya Lee, DISH NETWORK INSTALLER [address] [place] [address] Nurse Practitioner Family Medicine 02/13/23 Nibbler Operator Relationship Specialty Start Date End Date Adrian Malhotra DO [address] [place] [address] PCP - General Family Medicine 02/13/23 Olya Lee, DISH NETWORK INSTALLER [address] [place] [address] Nurse Practitioner Family Medicine 02/13/23 Nibbler Operator Relationship Specialty Start Date End Date Adrian Malhotra DO [address] [place] [address] PCP - General Family Medicine 02/13/23 Olya Lee, DISH NETWORK INSTALLER [address] [place] [address] Nurse Practitioner Family Medicine 02/13/23 Nibbler Operator Relationship Specialty Start Date End Date Adrian Malhotra DO [address] [place] [address] PCP - General Family Medicine 02/13/23 Olya Lee, DISH NETWORK INSTALLER [address] [place] [address] Nurse Practitioner Family Medicine 02/13/23 Nibbler Operator Relationship Specialty Start Date End Date Adrian Malhotra DO [address] [place], [place] [id number] PCP - General Family Medicine 02/13/23 Olya Lee, HARISH [address] [place] [address] Nurse Practitioner Family Medicine 02/13/23 FOR RECORDS PERTAINING TO PATIENTS WHO ARE OR HAVE BEEN ENROLLED IN A CHEMICAL DEPENDENCY/SUBSTANCEABUSE PROGRAM, SOME INFORMATION MAY BE OMITTED. This clinical summary was aggregated from multiple sources. Caution should be exercised in using it in the provision of clinical care. This summary normalizes information from multiple sources, and as a consequence, information in this document may materially change the coding, format and clinical context of patient data. In addition, data may be omitted in some cases. CLINICAL DECISIONS SHOULD BE BASED ON THE PRIMARY CLINICAL RECORDS. [employer] provides no warranty or guarantee of the accuracy or completeness of information in this document.
--- NOTE | 2024-09-02 06:49 | XR_ITS ---
The [address] [address] Patient Name: YESSICA MANCERA MRN: [id number] date: 1985 Sex: M Assigned Patient Location: MRI Current Patient Location: MRI Accession/Order Number: [id number] Exam Date: 09/02/2024 06:50 Report Date: 09/02/2024 07:11 At the request of: ANDRIUS GIEDRAITIS Procedure: XR foreign body eye CATERINA EXAMINATION: XR foreign body eye CATERINA HISTORY: Foreign Body Eye COMPARISON: No relevant comparison available. FINDINGS: ORBITS: Negative for a metallic foreign body. OTHER: Soft tissue attenuation left maxillary sinus. XR/XR foreign body eye CATERINA IMPRESSION: No metallic foreign body in the orbits. Electronically authenticated by: BI COOK Date: 09/02/2024 07:11
== END 2024-09-02 06:46 | disposition home or self-care (01) ==
LOC: MRI 06:45
PROVIDERS: PCP Nurse Practitioner; Visit Provider Anesthesiology
DX: M48.062 Spinal stenosis, lumbar region with neurogenic claudication (principal); M51.369 Other intervertebral disc degeneration, lumbar region without mention of lumbar back pain or lower extremity pain
CPT/HCPCS: 70030; 72148

== ENCOUNTER 2024-09-05 11:26 | Outpatient (OUT) | payer OTHER, SELFPAY ==
--- NOTE | 2024-09-05 12:52 | P.CN_ITS ---
Consult Note: HPI Data of Consult Patient: known to practice within the last 3 years Consult date: 09/05/24 Requesting Physician: Jassi Hart MD Primary Care Provider: Bia Torres NP Consult Narrative Reason for consult: low back pain Narrative: 39yom who presents for assessment. states that he is feeling ok today, but pain can flare up at random and be very intense. imaging reviewed, shows multilevel lumbar disc displacement, particularly at l4-5 and l5-s1. continues to stay active and exercise. tried flexeril, does not have much relief. cc:: CC: Jassi Hart MD Review of Systems ROS Status of ROS 10 or more systems reviewed and unremark able except as noted in history and below Meds Home Medications and Allergies Home Medications ?Medication ?Instructions ?Recorded ?Confirmed ?Type cyclobenzaprine 10 mg tablet 10 mg PO BID 08/15/24 08/15/24 History loratadine 10 mg tablet (Claritin) 10 mg PO DAILY PRN allergy symptoms 08/15/24 08/15/24 History Allergies Allergy/AdvReac Type Severity Reaction Status Date / Time No Known Drug Allergies Allergy Verified 08/15/24 15:03 Exam Narrative Exam Narrative: Psych-alert and oriented x 3. Attentive and appropriate, constitutionally normal, displays normal mood and affect per situation.? There are no obvious deficits in memory, reasoning, or intellect.? Skin-no obvious rashes, bruising, erythema noted to the patient's area of pain. Extremities- extremities are warm with minimal edema and palpable pulses. Lumbar-no significant tenderness to palpation noted in the lumbar spine and paraspinal musculature.? Pain is elicited with extension, and lateral rotation of the lumbar spine. Range of motion is slightly diminished with these motions due to pain. Coordination remains intact.? Gait remains non-antalgic. Assessment and Plan Assessment and Plan (1) Lumbar disc displacement without myelopathy: Plan 39yom who presents for assessment. notes intermittent symptoms. discussed that given his multilevel disc displacement, he may benefit from surgical evaluation. he expressed understanding and would like to be referred to [facility]. provided this referral. meds reviewed, no additional meds. follow up as needed.
== END 2024-09-05 11:27 | disposition home or self-care (01) ==
LOC: PM 11:26
PROVIDERS: PCP Nurse Practitioner; Visit Provider Anesthesiology
DX: M51.26 Other intervertebral disc displacement, lumbar region (principal)
CPT/HCPCS: G0463

== ENCOUNTER 2025-06-05 14:23 | Emergency (ER) | payer OTHER, SELFPAY ==
--- OUTSIDE RECORDS SUMMARY | 2025-06-05 14:33 | XMS_ITS | Clinical Summary ---
Author Organization [facility] Address [id number] [address] [place] [address] Care Team Providers Care Insole Coverer Name Role Phone MaryaAdrian Primary Care Provider [phone] Allergies No known active allergies Medications meloxicam (MOBIC) 7.5 mg tablet Take 7.5 mg by mouth daily as needed. Active predniSONE (DELTASONE) 10 mg tablet TAKE 4 TABLETS BY MOUTH for 2 (TWO) days then TAKE 3 TABLETS for 2 (TWO) days then TAKE 2 TABLETS for 2 (TWO) days then TAKE 1 TABLET for 2 11/13/2019 Active ketorolac (TORADOL) 10 mg tablet Take 10 mg by mouth every 6 (six) hours as needed. 11/13/2019 Active gabapentin (NEURONTIN) 300 mg capsuleIndicatio ns:Lumbosacral spondylosis without myelopathy Take 1 capsule (300 mg total) by mouth 3 (three) times a day. 90 capsule 1 11/17/2019 Active Active Problems Problem Noted Date Diagnosed Date Spondylosis without myelopat hy or radiculopathy, lumbar region 02/02/2017 Other intervertebral disc displacement, lumbar r egion 02/02/2017 Social History Tobacco Use Types Packs/Day Years Used Date Smoking Tobacco: Never Smokeless Tobacco: Never Alcohol Use Standard Drinks/Week Comments Yes 1 (1 standard drink = 0.6 oz pur e alcohol) drinks beer occasionally Childcare Answer Date Recorded Childcare Unknown 02/09/2019 Employment Answer Date Recorded Employment Unknown 02/09/2019 Purpose - Life Answer Date Recorded Purpose and direction in life Unknown Sex and Gender Information Value Date Recorded Sex Assigned at Not on file Legal Sex Male 11:37 AM EDT Gender Identity Not on file Sexual Orientation Not on file Last Filed Vital Signs Vital Sign Reading Time Taken Comments Blood Pressure 129/78 11/17/2019 8:11 AM EDT Pulse 76 11/17/2019 8:11 AM EDT Temperature - - Respiratory Rate 20 11/17/2019 8:11 AM EDT Oxygen Saturation - - Inhaled Oxygen Concentration - - Weight 108.2 kg (238 lb 9.6 oz) 11/17/2019 8:11 AM EDT Height 182.9 cm (6') 11/17/2019 8:11 AM EDT Body Mass Index 32.36 11/17/2019 8:11 AM EDT Plan of Treatment Health Maintenance Due Date Last Done Comments Depression Screening 1996 Tobacco Screening 1996 Adult BMI Screening 2002 DTaP,Tdap and Td Vaccines (2 - Td or Tdap) 01/29/2022 01/30/2012 Influenza Vaccine 05/01/2025 Medical Devices Not on file Insurance [address] [place] [address] [facility] Care Teams Insole Coverer Relationship Specialty Start Date End Date Adrian Malhotra DO [address] [place] [address] PCP - General Internal Medicine 11/17/19
--- OUTSIDE RECORDS SUMMARY | 2025-06-05 14:34 | XMS_ITS | Encounter Summary ---
Author Organization [facility] Address [address] [place] [address] Care Team Providers Care Transportation Assistant Name Role Phone Marya, Adrian Perez DO Primary Care Provider [phone] Aura Nixon NP Unavailable [phone] Encounter Details Date Type Department Care Team (Late st Contact Info) Description 06/08/2023 Abstract [facility] [address] [place] [id number] Bia Torres NP [address] [place] [address] Social History Tobacco Use Types Packs/Day Years Used Date Smoking Tobacco: Never Smokeless Tobacco: Former Tobacco Cessation:Counseling Given: Not Answered Alcohol Use Standard Drinks/Week Comments Yes 0 (1 standard drink = 0.6 oz pure alcohol) 1-2 drinks less than monthly in the past year AUDIT-C Answer Date Recorded Q1: How often do you have a drink containing alc ohol? Monthly or less 02/13/2023 Q2: How many drinks containi ng alcohol do you have on a typical day when you are drinking? 1 or 2 02/13/2023 Q3: How often do you have si x or more drinks on one occasion? Never 02/13/2023 PHQ-2 Answer Date Recorded Patient Health Questionnaire-2 Score 0 06/09/2023 Sex and Gender Information Value Date Recorded Sex Assigned at Not on file Legal Sex Male 7:12 PM EDT Gender Identity Not on file Sexual Orientation Not on file documented as of this encounter Functional Status * Over the past 2 weeks, how often have you been bothered by any of the following problems? Question Answer Date of Assessment Author Little interest or pleasure in doing things Not at all 06/09/2023 2:27 PM EDT Natalie Adams LPN Feeling down, depressed, or hopeless Not at all 06/09/2023 2:27 PM EDT Natalie Adams LPN Patient Health Questionnaire -2 Score 0 06/09/2023 2:27 PM EDT Natalie Adams LPN documented as of this encounter Plan of Treatment Not on file documented as of this encounter Visit Diagnoses Not on filedocumented in this encounter Additional Health Concerns Assessment Noted Time PHQ-9 Depression Total Score: 8 02/20/20 23 8:03 AM EDT documented as of this encounter Care Teams Transportation Assistant Relationship Specialty Start Date End Date Adrian Malhotra DO [address] [place], [place] [id number] PCP - General Family Medicine 02/13/23 Aura Nixon, HARISH [address] [place], [place] [id number] Nurse Practitioner Family Medicine 02/13/23 documented as of this encounter
--- OUTSIDE RECORDS SUMMARY | 2025-06-05 14:34 | XMS_ITS | Clinical Summary ---
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 Active cyclobenzaprine (FLEXERIL) 10 mg tablet Take 1 tablet by mouth every 12 hours. Active meloxicam (MOBIC) 15 mg tablet Take 15 mg by mouth once daily. Active OTC PRODUCT Lisandro Loss Supplement Active OTC PRODUCT Testosterone Activ e Active Problems No known active problems Social History Tobacco Use Types Packs/Day Years Used Date Smoking Tobacco: Never Smokeless Tobacco: Current Tobacco Cessation:Ready to Q uit: Not Asked; Counseling Given: Not Answered Comments:Nicotine Pouch PHQ-2 Answer Date Recorded PHQ-2 score 0 12/20/2024 Area Deprivation Index Answer Date Andi rded National Score (1-100), lower number is lower ri sk 64 10/31/2024 State Score (1-10), lower number is lower risk 4 10/31/2024 Data from: https://www.neigh borhoodatlas.medicine.[facility].edu/. Last address used for calculation [address] 10/31/2024 Sex and Gender Information Value Date Recorded Sex Assigned at Not on file Legal Sex Male 7:30 AM EST Gender Identity Not on file Sexual Orientation Not on file Last Filed Vital Signs Vital Sign Reading Time Taken Comments Blood Pressure 121/80 12/21/2024 12:42 PM EDT Pulse 76 12/21/2024 12:42 PM EDT Temperature - - Respiratory Rate - - Oxygen Saturation 98% 12/21/2024 12: 42 PM EDT Inhaled Oxygen Concentration - - Weight 108.4 kg (238 lb 15.7 oz) 2024 12:42 PM EDT Height 182.9 cm (6') 12/21/2024 12:42 PM EDT Body Mass Index 32.41 12/21/2024 12:42 PM EDT Plan of Treatment Health Maintenance Due Date Last Done Comments Anxiety Screening 2002 Depression Screening 2002 HIV Screening 2002 Hepatitis C Screening 2002 Hepatitis B Vaccine (1 of 3 - 19+ 3-dose series) 07/08 HPV Vaccine (1 - 3-dose SCDM series) 2011 Lipid Screening 2019 Covid-19 Vaccine (2 - season) 05/01/202501/2021 Influenza Vaccine (#1) 2025 DTaP,Tdap,Td Vaccine (2 - Td or Tdap) 02/13/2033 Insurance Care Teams Oil Extractor Relationship Specialty Start Date End Date Jassi Hart MD [address] [place] [address] [address] [place] [address] Pain Management 09/06/24
--- OUTSIDE RECORDS SUMMARY | 2025-06-05 14:37 | XMS_ITS | CCD ---
Author Organization [facility] Care Team Providers Care Director Of First Impressions Name Role Phone MISC, DOCTOR Admitting Unavailable MISC, DOCTOR Attending Unavailable RICHA BETHEA Attending Unavailable OLYA NIXON Attending Unavailable OLYA NIXON Attending Unavailable Adrian Malhotra DO Primary Care Provider Hussain HISTORY CARD CLERK, Olya Dawson Unavailable Hailey NGUYEN, Jassi Paris Attending Unavailable Giantony NGUYEN, Andrius Veli Attending Unavailable Giantony NGUYEN, Andrius Unavailable [phone] DESTINY BRAUN Attending Unavailable HAILEY, ADELERI Referring Unavailable PHILIP MARIN Attending Unavailable DESTINY BRAUN Referring Unavailable Medications Current Medications Medication Drug Class(es) Dates Sig (Normalized) Sig (Original) aspirin 500 mg / caffeine 32.5 mg oral tablet (14 sources) Platelet Aggregation Inhibitor, Nonsteroidal Anti-inflammatory Drug, Central Nervous System Stimulant, Methylxanthine aspirin-caffeine (DELPHINE BACK AND BODY) 500-32.5 mg tab Take by mouth as directed. Active cyclobenzaprine hydrochloride 10 mg oral tablet (2 sources) Muscle Relaxant Start: 08-15-2024 take 1 tablet by mouth every twelve hours cyclobenzaprine (FLEXERIL) 10 mg tablet Take 1 tablet by mouth every 12 hours. 08/15/2024 Active famotidine 20 mg oral tablet (6 [...] Discontinued meloxicam 15 mg disintegrating oral tablet (18 sources) Nonsteroidal Anti-inflammatory Drug Start: 08-22-2024 End: [...] (JOINT FORMULA PO) Take by mouth. Active OTC PRODUCT (4 sources) OTC PRODUCT Lisandro Loss Supplement Active OTC PRODUCT Test osterone Active pantoprazole 40 mg delayed release oral [...] Spondylosis; intervertebral disc disorders; other back problems (10 sources) Acute back pain with sciatica; Translations: [Lumbago co-occurrent with right-side sciatica] Onset: 12-21-2024 08-11-2024 Episodic Past or Other Problems Problem [...] Lentiginosis; Translations: [Other melanin hyperpigmentation] 05-05-2024 Episodic Results Test Name Value Interpretation Reference Range Facil ity CNOVon 12-21-2024 CNOV Office Visit ([facility] ) -------- FIORDALIZADEREJE Galvin ([id number]) 1985 M Date Time Provider Department 12/21/24 1:00 PM PHILIP MARIN [facility] During your visit today, we recorded the following information about you: Pulse Blood pressure Weight Height 76/minute 121/80 108.4 kg 1.829 m Philip Marin MD 12/27/2024 9:21 AM Signed 12/20/2024 PROMIS Global Health Physical Health Summary Physical health: Good Everyday physical activity, ability: Mostly Fatigue: Mild Pain level: 5 General health: Very good Social activities/roles, ability: Very good Physical Health T-Score 44.9 (Good) Physical Health Percentile 31 PROMIS Global Health Mental Health Summary Quality of life: Very good Mental health (mood,thinking): Excellent Social satisfaction: Excellent Emotional problems (anxious,depressed): Never Mental Health T-Score 62.5 (Excellent) Mental Health Percentile 89 PHQ-9 Score: 1(Minimal Depression) PHQ-9 Self-Harm: Not at all PROMIS Physical Function T-Score 42(Mild Dysfunction) PROMIS Physical Function Percentile 21 PROMIS Pain Interference T-Score 63(Moderate) PROMIS Pain Interference Percentile 10 Percentiles provide an indication of how a patient's score ranks in relation to the [place] general population. > 31st percentile is within normal limits or better *< 31st percentile is at least ? SD worse than population, which may be clinically relevant < 16th percentile is at least 1 SD worse than population and warrants attention SPINE SURGERY NEW PATIENT PCP: No primary care provider on file. REFERRING PROVIDER: Destiny Braun [address] [facility] [address] Medical Decision Making: Problems: Moderate: 2+ stable chronic illnesses Data: Independent interpretation of test from other physician/QHCP Risk: Moderate: Moderate risk from testing/treatment Medical Decision Making Level: 4 - Moderate Assessment/Plan (M54.16) Radiculopathy, lumbar region (primary encounter diagnosis) 1. Radiculopathy, lumbar region (M54.16) - Chronic lumbar radiculopathy with intermittent exacerbations, primarily during colder months and following physical exertion. - MRI reveals mild disc bulges at multiple levels, with a small annular tear at L5-S1 and mild foraminal narrowing on the left side at L5. - Differential diagnosis includes possible sacroiliac joint inflammation or underlying inflammatory arthritis. - Ordered CT scan of the lumbar spine to evaluate the sacroiliac joints. - Discussed potential muscle-related etiology; recommended ergonomic adjustments and strengthening exercises for back muscles. - Previous epidural steroid injections (ESIs) were ineffective; patient had approximately 4-5 injections without relief. - Ordered a selective nerve root block targeting the L5 nerve on the left side to assess for potential surgical intervention. - Patient advised to monitor and report any relief or changes in pain following the injection. - Follow-up with Dr. Reed to evaluate response to the selective nerve root block. Patient specific-risk factors: Obesity (BMI > 30): Patient's last recorded BMI is > 30 (BMI 32.41 kg/m2). Obesity is associated with higher risk of jessica-operative complications for spine surgery patients. Importance of weight loss was discussed with patient and plan for patient to increase exercise and monitor caloric intake to maintain a healthy weight was discussed. Actions Based on the Above Information: Discussed weight management Subjective Chief Complaint: History of Present Illness: Dereje is a 39-year-old male presenting with chronic lower back pain radiating to the legs. 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 He experiences significant stiffness upon waking, requiring a warm shower to loosen up. Throughout the day, his mobility improves, but the dull pain persists. He does not engage in morning stretching exercises. He describes intermittent episodes of severe pain, during which the back pain intensifies and radiates down the left leg. These episodes occur approximately once every six months, more frequently in colder weather, and are triggered by minimal movements following heavy lifting. During these episodes, he is often housebound for 1-2 days and requires 1-1.5 weeks to return to normal activities. He notes that the pain is worse in the winter and less frequent in the summer. Dereje has undergone 4-5 injections in [place], involving three needles on each side of the spine under fluoroscopy, which did not provide relief. He has not tried physical therapy, muscle relaxants, or gabapentin. Pain medications have been ineffective. His primary care physician suggested considering surgical options due to worsening disc protrusion observed on MRI. Musculo (more content not included)... Normal [facility] CNOVon 10-31-2024 [facility]OV [facility] -------- DEREJE MANCERA ([id number]) 1985 M Date Time Provider Department 10/31/24 1:50 PM DESTINY BRAUN [facility] During your visit today, we recorded the following information about you: Pulse Blood pressure Weight 79/minute 142/85 109.5 kg Destiny Braun DO 11/19/2024 4:21 PM Signed [facility] - Medical Spine Initial Exam SUBJECTIVE HISTORY OF PRESENT ILLNESS: Dereje Gaylecuso is a 39 year old male who presents with a chief complaint of low back and leg pain and is seen in consultation requested by Dr. Jassi Hart for an opinion regarding above complaints. My final recommendations will be communicated back to the requesting physician by way of shared medical record or letter via [place] mail. Accompanied by his . Spine Surgery triage chart review was completed and patient was recommended to see medical spine interventionalist for conservative treatment and was scheduled here today. Chronic low back pain for at least 10 years (2014). Notes h/o sports injury age 7. Constant dull pain is located midline lower lumbar, might go away briefly in the Summer, worse with heavy lifting. Intermittent flare ups of more severe pain in which he has difficulty moving and weight bearing for a few days. This occurs around 2-3 times per winter, but flare ups have increased. Flare ups occur right or left low back, radiates up back to shoulder blade area, and can radiate down LLE posteriorly to the knee, sometimes right buttock. Associated with numbness in the LLE region of pain, sometimes tingling in left toes. Denies LE weakness, but will have difficulty walking due to pain. Denies bowel/bladder incontinence or saddle anesthesia. The pain is currently 3-4/10. The pain can get to 10/10 at the highest and 0-1/10 at the lowest. PAIN EVALUATION No data found in the last 1 encounters. Pain Radiation: As above Aggravating Factors: Worse in the morning Worse in cold weather Bending, lifting Alleviating Factors: Sit on heating pad Stretches Current Treatment: Medications None Therapies PT HEP stretches Heat Prior Treatment: Medications Toradol IM PRN during pain flares - helped Ibuprofen Meloxicam 15 mg - mild relief Flexeril 10 mg - didn't help Gabapentin 300 mg in 2019 - can't recall response Therapies PT: [facility] 1-2 years ago without relief Prior spine interventions: -Lumbar epidural steroid injections under fluoroscopy with Dr. Arceo - were not helpful. Prior spine surgery: none Previously treated by: -Pain Management Dr. Jassi Hart, [facility]. Per patient, provider did not recommend injections and recommended patient see spine surgery. -Pain Management [facility] 2019 for low back pain. Recommended Gabapentin 300 mg TID. 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 Higher percentile rankings indicate better function/quality of life. 50th percentile is the average of the general population and indicates half of respondents had a worse score. Depression Screening: PHQ-9 Self-Harm (Item 9) response options: 0 Not at all 1 Several days 2 More than half the days 3 Nearly every day PHQ-9 Levels: 0-4 No - mild depression 5-9 Mild depression 10-14 Moderate depression 15-19 Moderately severe depression 20-27 Severe depression There is no problem list on file for this patient. No past medical history on file. No past surgical history on file. No family history on file. ALLERGIES Not on File CURRENT MEDICATIONS: aspirin-caffeine (DELPHINE BACK AND BODY) 500-32.5 mg tab Take by mouth as directed. cyclobenzaprine (FLEXERIL) 10 mg tablet Take 1 tablet by mouth every 12 hours. meloxicam (MOBIC) 15 mg tablet Take 15 mg by mouth once daily. REVIEW OF SYSTEMS: 14 systems reviewed and otherwise negative unless mentioned above. OBJECTIVE: PHYSICAL EXAM BP 142/85 Pulse 79 Wt 109.5 kg (241 lb 6.5 oz) GENERAL APPEARANCE: Well nourished, well developed, and no apparent distress. NEURO PSYCH: Patient oriented to person, place, and time. Mood pleasant. Benign affect. CARDIOVASCULAR: Palpable pulses. No edema noted. RESPIRATORY: (more content not included)... [facility] Vital Signs Date Time Vital Sign Value Performing Clinician Faci lity 12-21-2024 12:42-0400 Body height 182.9 cm Philip Marin MD Work Phone: [facility] 12-21-2024 12:42-0400 Body mass index (BMI) [Ratio] 32.41 kg/m2 Philip Marin MD Work Phone: [facility] 12-21-2024 12:42-0400 Body weight 108.4 kg Philip Marin MD Work Phone: [facility] 12-21-2024 12:42-0400 Diastolic blood pressure 80 mm[Hg] Philip Marin MD Work Phone: [facility] 12-21-2024 12:42-0400 Heart rate 76 /min Philip Marin MD Work Phone: [facility] 12-21-2024 12:42-0400 SaO2% (BldA) [Mass fraction] 98 % Philip Marin MD Work Phone: [facility] 12-21-2024 12:42-0400 Systolic blood pressure 121 mm[Hg] Philip Marin MD Work Phone: [facility] 10-31-2024 13:50-0500 Body weight 109.5 kg Destiny Braun DO Work Phone: [facility] 10-31-2024 13:50-0500 Diastolic blood pressure 85 mm[Hg] Destiny Braun DO Work Phone: [facility] 10-31-2024 13:50-0500 Heart rate 79 /min Destiny Braun DO Work Phone: [facility] 10-31-2024 13:50-0500 Systolic blood pressure 142 mm[Hg] Destiny Braun DO Work Phone: [facility] 08-10-2024 13:16-0500 Body height 182.9 cm Olya Nixon HISTORY CARD CLERK Work Phone: [facility] 08-10-2024 13:16-0500 Body mass index (BMI) [Ratio] 32.96 kg/m2 Olya Nixon HISTORY CARD CLERK Work Phone: [facility] 08-10-2024 13:16-0500 Body temperature 98.29 [degF] Olya Nixon HISTORY CARD CLERK Work Phone: [facility] 08-10-2024 13:16-0500 Body weight 110.22 kg Olya Nixon HISTORY CARD CLERK Work Phone: [facility] 08-10-2024 13:16-0500 Diastolic blood pressure 74 mm[Hg] Olya Nixon HISTORY CARD CLERK Work Phone: [facility] 08-10-2024 13:16-0500 Heart rate 87 /min Olya Nixon HISTORY CARD CLERK Work Phone: [facility] 08-10-2024 13:16-0500 SaO2% (BldA) [Mass fraction] 97 % Olya Nixon HISTORY CARD CLERK Work Phone: [facility] 08-10-2024 13:16-0500 Systolic blood pressure 120 mm[Hg] Olya Nixon HISTORY CARD CLERK Work Phone: [facility] 05-30-2024 08:25-0400 Body mass index (BMI) [Ratio] 32.55 kg/m2 Olya Nixon HISTORY CARD CLERK Work Phone: [facility] 05-30-2024 08:25-0400 Body temperature 99.19 [degF] Olya Nixon HISTORY CARD CLERK Work Phone: [facility] 05-30-2024 08:25-0400 Body weight 108.86 kg Olya Nixon HISTORY CARD CLERK Work Phone: [facility] 05-30-2024 08:25-0400 Diastolic blood pressure 88 mm[Hg] Olya Nixon HISTORY CARD CLERK Work Phone: [facility] 05-30-2024 08:25-0400 Heart rate 87 /min Olya Nixon HISTORY CARD CLERK Work Phone: [facility] 05-30-2024 08:25-0400 SaO2% (BldA) [Mass fraction] 97 % Olya Nixon HISTORY CARD CLERK Work Phone: [facility] 05-30-2024 08:25-0400 Systolic blood pressure 122 mm[Hg] Olya Nixon HISTORY CARD CLERK Work Phone: [facility] Healthcare Encounters Encounter Date Encounter Type Care Provider Facility Start: 12-21-2024 End: 12-21-2024 Patient encounter procedure Philip Marin MD Work Phone: Neurosurgery Comment on above: Radiculopathy, lumba r region (Primary Dx) Start: 12-21-2024 End: 12-21-2024 ambulatory PHILIP MARIN Facility:[facility] Start: 10-31-2024 End: 10-31-2024 ambulatory DESTINY BRAUN Facility:[facility] Start: 10-31-2024 End: 10-31-2024 Patient encounter procedure Destiny Braun DO Work Phone: Spine Medicine Comment on above: Degeneration of inte rvertebral disc of lumbosacral region with discogenic back pain and lower extremity pain (Primary Dx); Lumbosacral neuritis Start: 09-07-2024 End: 10-03-2024 Chart abstracting Unk Pcp (Hist) Neurology Start: 09-05-2024 End: 09-05-2024 ambulatory Jassi Hart MD Facility:[facility] Start: 08-22-2024 End: 08-30-2024 Refill Natalie Adams BELLA Work Phone: [facility] Comment on above: Displacement of lumb ar intervertebral disc without myelopathy Start: 08-22-2024 End: 08-22-2024 Refill Olya Nixon HISTORY CARD CLERK Work Phone: [facility] Comment on above: Displacement of lumb ar intervertebral disc without myelopathy Start: 08-15-2024 End: 08-15-2024 Telephone encounter Olya Nixon HISTORY CARD CLERK Work Phone: [facility] Comment on above: Back Pain Start: 08-15-2024 End: 08-15-2024 ambulatory Jassi Hart MD Facility:[facility] Start: 08-10-2024 End: 08-10-2024 Office outpatient visit 15 minutes Olya Nixon HISTORY CARD CLERK Work Phone: [facility] Comment on above: Right-sided low back pain with right-sided sciatica, unspecified chronicity (Primary Dx); Displacement of lumbar intervertebral disc without myelopathy; Acute bilateral low back pain with bilateral sciatica Start: 08-10-2024 End: 08-10-2024 ambulatory OLYA NIXON Not Available Start: 05-30-2024 End: 05-30-2024 Bamboo flowsheet Olya Nixon HISTORY CARD CLERK Work Phone: [facility] Start: 05-30-2024 End: 05-30-2024 Bamboo flowsheet Olya Nixon HISTORY CARD CLERK Work Phone: [facility] Start: 05-30-2024 End: 05-30-2024 Patient encounter status Olya Nixon HISTORY CARD CLERK Work Phone: [facility] Start: 05-30-2024 End: 05-30-2024 Periodic preventive med est patient 18-39 yrs Olya Nixon HISTORY CARD CLERK Work Phone: [facility] Comment on [...] Start: 05-30-2024 End: 05-30-2024 Physical examination Olya Nixon HISTORY CARD CLERK Work Phone: [facility] Start: 05-30-2024 End: 05-30-2024 ambulatory OLYA NIXON Not Available Start: 05-05-2024 End: 05-05-2024 Office outpatient new 30 minutes Richa Bethea TELEVISION ENGINEER-BINDERY CHIEF Work Phone: [facility] Comment on above: Melanocytic nevus of trunk (Primary Dx); Lentigines; Angioma of skin; Neoplasm of skin; Surgery, elective Start: 05-05-2024 End: 05-05-2024 ambulatory RICHA BETHEA Not Available Start: 05-05-2024 End: 05-05-2024 Bamboo flowsheet Richa Bethea TELEVISION ENGINEER-BINDERY CHIEF Work Phone: [facility] Start: 05-05-2024 End: 05-05-2024 Bamboo flowsheet Richa Bethea TELEVISION ENGINEER-BINDERY CHIEF Work Phone: [facility] Start: 12-01-2019 End: 06-11-2020 Patient encounter procedure [facility] [place]: Plan of Treatment Date Care Activity Detail Author Start: 02-13-2033 Urine microalbumin profile DTaP,Tdap,Td Vaccine (2 - Td or Tdap) [facility] Start: 05-08-2025 End: 05-08-2025 Patient encounter procedure 05/08/2025 2:20 PM EDT Office Visit [facility] [address] [place] [address] Richa Bethea, TELEVISION ENGINEER-BINDERY CHIEF [address] [place] [address] [facility] Start: 12-21-2024 End: 12-21-2024 Patient encounter procedure 12/21/2024 1:00 PM EDT Office Visit Neurosurgery [address] [place] [address] Philip Marin MD [address] [place] [address] Degeneration of intervertebral disc of lumbosacral region with discogenic back pain and lower extremity pain [M51.372 (ICD-10-CM)]; Lumbosacral neuritis [M54.17 (ICD-10-CM)] Neurosurgery Comment on above: Degeneration of inte rvertebral disc of lumbosacral region with discogenic back pain and lower extremity pain [M51.372 (ICD-10-CM)]; Lumbosacral neuritis [M54.17 (ICD-10-CM)] Start: 10-05-2024 Influenza vaccination Influenza Vacc ine (#1) [facility] Comment on above: Postponed from 05/01 (Patient Refused) Start: 05-30-2024 End: 05-30-2025 25-hydroxyvitamin D3 [Mass/volume] in Serum or Plasma Vitamin D 25 hydroxy Total Lab Routine Blood tests for routine general physical examination Vitamin D deficiency Encounter for vitamin deficiency screening Expected: 05/30/2024 (Approximate), Expires: 05/30/2025 [facility] Comment on above: Expected: 05/30/2024 (Approximate), Expires: 05/30/2025 Start: 05-30-2024 End: 05-30-2025 CBC W Auto Differential panel - Blood CBC and differential Lab Routine Screening for cardiovascular condition Blood tests for routine general physical examination Expected: 05/30/2024 (Approximate), Expires: 05/30/2025 [facility] Comment on above: Expected: 05/30/2024 (Approximate), Expires: 05/30/2025 Start: 05-30-2024 End: 05-30-2025 Comprehensive metabolic 2000 panel - Serum or Plasma Comprehensive metabolic panel Lab Routine Screening for cardiovascular condition Blood tests for routine general physical examination Expected: 05/30/2024 (Approximate), Expires: 05/30/2025 [facility] Work Phone: Comment on above: Expected: 05/30/2024 (Approximate), Expires: 05/30/2025 Start: 05-30-2024 End: 05-30-2025 Hemoglobin A1c/Hemoglobin.total in Blood Hemoglobin A1c Lab Routine Blood tests for routine general physical examination Screening for diabetes mellitus (DM) Abnormal glucose Expected: 05/30/2024 (Approximate), Expires: 05/30/2025 [facility] Comment on above: Expected: 05/30/2024 (Approximate), Expires: 05/30/2025 Start: 05-30-2024 End: 05-30-2025 Lipid 1996 panel - Serum or Plasma Lipid panel Lab Routine Screening for cardiovascular condition Blood tests for routine general physical examination Screening for lipid disorders Expected: 05/30/2024 (Approximate), Expires: 05/30/2025 [facility] Comment on above: Expected: 05/30/2024 (Approximate), Expires: 05/30/2025 Start: 05-30-2024 End: 05-30-2025 TSH W/REFLEX TO FT4 TSH W/REFLEX TO FT4 Lab Routine Blood tests for routine general physical examination Screening for thyroid disorder Expected: 05/30/2024 (Approximate), Expires: 05/30/2025 [facility] Comment on above: Expected: 05/30/2024 (Approximate), Expires: 05/30/2025 Start: 05-30-2024 End: 05-30-2024 Patient encounter procedure 05/30/2024 8:30 AM EDT Office Visit [facility] [address] [place] [id number] Olya Nixon NP [address] [place] [address] Screening for cardiovascular condition; Blood tests for routine general physical examination; Screening for thyroid disorder; Other fatigue; Vitamin D deficiency; Encounter for vitamin deficiency screening; Screening for lipid disorders; Screening for diabetes mellitus (DM); Abnormal glucose [facility] Comment on above: Screening for cardio vascular condition; Blood tests for routine general physical examination; Screening for thyroid disorder; Other fatigue; Vitamin D deficiency; Encounter for vitamin deficiency screening; Screening for lipid disorders; Screening for diabetes mellitus (DM); Abnormal glucose Start: 05-05-2024 End: 05-05-2024 Patient encounter procedure 05/05/2024 2:25 PM EDT Office Visit [facility] [address] [place] [address] Richa Bethea TELEVISION ENGINEER-BINDERY CHIEF [address] [place] [address] Arrived [facility] Comment on above: Arrived Start: 05-01-2024 Covid-19 Vaccine ( season) Covid-19 Vaccine ( season) [facility] Start: 05-01-2024 Influenza vaccination Influenza Vacc ine (#1) [facility] Start: 2019 Lipid panel Lipid Screening [facility] Start: 2003 Hepatitis B Vaccine (1 of 3 - 19+ 3-dose series) Hepatitis B Vaccine (1 of 3 - 19+ 3-dose series) [facility] Start: 2002 Anxiety Screening Anxiety Screening [facility] Start: 2002 Depression Screening Depression Scre ening [facility] Start: 2002 Hepatitis C screening Hepatitis C Sc reening [facility] Start: 2002 HIV screening HIV Screening [facility] SPINE INTERVENTION PROCEDURE SPINE INTERVENTION PROCEDURE Procedures Routine Radiculopathy, lumbar region Ordered: 12/21/2024 [facility] Work Phone: Comment on above: Ordered: 12/21/2024 Immunizations Immunization Date Immunization Notes Care Provider Reggie patel 02-13-2023 tetanus toxoid, redu nenita diphtheria toxoid, and acellular pertussis vaccine, adsorbed Richa Bethea TELEVISION ENGINEER-BINDERY CHIEF Work Phone: [facility] Healthcare 04-05-2021 Joseph SARS-CoV-2 Richa hudson TELEVISION ENGINEER-BINDERY CHIEF Work Phone: [facility] Healthcare Payers Date Payer Category Payer Private Health Insurance [id number] 2021 Unknown [id number] 2021 Unknown [id number] 1984 Unknown [id number] 2.16.84 [id number] 1984 Unknown [id number] 2.16.84 [id number] 1984 Unknown [id number] 2.16.84 [id number] 1984 Unknown [id number] 2.16.84 [id number] 1984 Unknown [id number] [id number]. [id number] 1984 Unknown [id number] [id number]. [id number] 1959 Unknown [id number] Social History Date Type Detail Facility Start: 02-13-2023 End: 10-31-2024 Tobacco smoking status [facility] Never smoked tobacco [facility] Start: 02-13-2023 Tobacco use and exposure Forme r smokeless tobacco user [facility] Start: 05-30-2024 End: 08-10-2024 Alcoholic beverage intake Current drinker of alcohol (finding) [facility] Start: 08-10-2024 End: 10-31-2024 [facility]coholic beverage [facility] Start: 05-29-2024 End: 10-31-2024 [id number] Health Literacy [facility] How often do you nee d to have someone help you when you read instructions, pamphlets, or other written material from your doctor or pharmacy [SILS] Never [facility] Do you belong to any clubs or organizations such as muslim groups, unions, fraternal or athletic groups, or [...] Not at all [facility] (I/We) worried wheth er (my/our) food would run out before [...] typical day? 1 or 2 [facility] Start: 10-31-2024 Tobacco use and exposure User of smokeless tobacco [facility] Start: 10-31-2024 Tobacco Comment Nicotine Pouch [facility] Clinical Notes 05-05-2024 to 12-21-2024 Philip Marin MD - 12/21/2024 2:05 PM EDTPatient Destiny Whaley DO - 10/31/2024 1:10 PM Madonna Connors PA-C - 10/03/2024 10:20 PM Pari Summers - 09/07/2024 9:30 AM EST Note Date & Type Note Facility 12-21-2024 Note HNO ID: [id number] Author: PHILIP MARIN MD Service: ? Author Type: Physician Type: Progress Notes Filed: 12/27/2024 09:21 Note Text: 12/20/2024 PROMIS [facility] Health Physical Health Summary Physical health: Good Everyday physical activity, ability: Mostly Fatigue: Mild Pain level: 5 General health: Very good Social activities/roles, ability: Very good Physical Health T-Score 44.9 (Good) Physical Health Percentile 31 PROMIS [facility] Mental Health Summary Quality of life: Very good Mental health (mood,thinking): Excellent Social satisfaction: Excellent Emotional problems (anxious,depressed): Never Mental Health T-Score 62.5 (Excellent) Mental Health Percentile 89 PHQ-9 Score: 1(Minimal Depression) PHQ-9 Self-Harm: Not at all PROMIS Physical Function T-Score 42(Mild Dysfunction) PROMIS Physical Function Percentile 21 PROMIS Pain Interference T-Score 63(Moderate) PROMIS Pain Interference Percentile 10 Percentiles provide an indication of how a patient's score ranks in relation to the [place] general population. > 31st percentile is within normal limits or better *< 31st percentile is at least ? SD worse than population, which may be clinically relevant < 16th percentile is at least 1 SD worse than population and warrants attention SPINE SURGERY NEW PATIENT PCP: No primary care provider on file. REFERRING PROVIDER: Destiny Braun [address] [place], [place] [id number] Medical Decision Making: Problems: Moderate: 2+ stable chronic illnesses Data: Independent interpretation of test from other physician/QHCP Risk: Moderate: Moderate risk from testing/treatment Medical Decision Making Level: 4 - Moderate Assessment/Plan (M54.16) Radiculopathy, lumbar region (primary encounter diagnosis) 1. Radiculopathy, lumbar region (M54.16) - Chronic lumbar radiculopathy with intermittent exacerbations, primarily during colder months and following physical exertion. - MRI reveals mild disc bulges at multiple levels, with a small annular tear at L5-S1 and mild foraminal narrowing on the left side at L5. - Differential diagnosis includes possible sacroiliac joint inflammation or underlying inflammatory arthritis. - Ordered CT scan of the lumbar spine to evaluate the sacroiliac joints. - Discussed potential muscle-related etiology; recommended ergonomic adjustments and strengthening exercises for back muscles. - Previous epidural steroid injections (ESIs) were ineffective; patient had approximately 4-5 injections without relief. - Ordered a selective nerve root block targeting the L5 nerve on the left side to assess for potential surgical intervention. - Patient advised to monitor and report any relief or changes in pain following the injection. - Follow-up with Dr. Reed to evaluate response to the selective nerve root block. Patient specific-risk factors: Obesity (BMI > 30): Patient's last recorded BMI is > 30 (BMI 32.41 kg/m2). Obesity is associated with higher risk of jessica-operative complications for spine surgery patients. Importance of weight loss was discussed with patient and plan for patient to increase exercise and monitor caloric intake to maintain a healthy weight was discussed. Actions Based on the Above Information: Discussed weight management Subjective Chief Complaint: History of Present Illness: Dereje is a 39-year-old male presenting with chronic lower back pain radiating to the legs. 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 He experiences significant stiffness upon waking, requiring a warm shower to loosen up. Throughout the day, his mobility improves, but the dull pain persists. He does not engage in morning stretching exercises. He describes intermittent episodes of severe pain, during which the back pain intensifies and radiates down the left leg. These episodes occur approximately once every six months, more frequently in colder weather, and are triggered by minimal movements following heavy lifting. During these episodes, he is often housebound for 1-2 days and requires 1-1.5 weeks to return to normal activities. He notes that the pain is worse in the winter and less frequent in the summer. Dereje has undergone 4-5 injections in [place], involving three needles on each side of the spine under fluoroscopy, which did not provide relief. He has not tried physical therapy, muscle relaxants, or gabapentin. Pain medications have been ineffective. His primary care physician suggested considering surgical options due to worsening disc protrusion observed on MRI. Musculoskeletal: (+) low back pain, (+) muscle spasms, (+) morning stiffness Neurological: (+) shooting pain radiating to left thigh (occasional right thigh) Questionnaire Generated HPI Possible Spine-Related Symptoms: Pain Symptom Onset:More than 5 years Symptom Lo (more content not included)... [facility] 12-21-2024 History of Present illness Narrative Images from the original note were not included. 12/20/2024 PROMIS Global Health Physical Health Summary Physical health: Good Everyday physical activity, ability: Mostly Fatigue: Mild Pain level: 5 General health: Very good Social activities/roles, ability: Very good Physical Health T-Score 44.9 (Good) Physical Health Percentile 31 PROMIS [facility] Mental Health Summary Quality of life: Very good Mental health (mood,thinking): Excellent Social satisfaction: Excellent Emotional problems (anxious,depressed): Never Mental Health T-Score 62.5 (Excellent) Mental Health Percentile 89 PHQ-9 Score: 1(Minimal Depression) PHQ-9 Self-Harm: Not at all PROMIS Physical Function T-Score 42(Mild Dysfunction) PROMIS Physical Function Percentile 21 PROMIS Pain Interference T-Score 63(Moderate) PROMIS Pain Interference Percentile 10 Percentiles provide an indication of how a patient's score ranks in relation to the [place] general population. > 31st percentile is within normal limits or better *< 31st percentile is at least SD worse than population, which may be clinically relevant < 16th percentile is at least 1 SD worse than population and warrants attention SPINE SURGERY NEW PATIENT PCP: No primary care provider on file. REFERRING PROVIDER: Destiny Braun [address] [facility] [id number] Medical Decision Making: Problems: Moderate: 2+ stable chronic illnesses Data: Independent interpretation of test from other physician/QHCP Risk: Moderate: Moderate risk from testing/treatment Medical Decision Making Level: 4 - Moderate Assessment/Plan (M54.16) Radiculopathy, lumbar region (primary encounter diagnosis) 1. Radiculopathy, lumbar region (M54.16) - Chronic lumbar radiculopathy with intermittent exacerbations, primarily during colder months and following physical exertion. - MRI reveals mild disc bulges at multiple levels, with a small annular tear at L5-S1 and mild foraminal narrowing on the left side at L5. - Differential diagnosis includes possible sacroiliac joint inflammation or underlying inflammatory arthritis. - Ordered CT scan of the lumbar spine to evaluate the sacroiliac joints. - Discussed potential muscle-related etiology; recommended ergonomic adjustments and strengthening exercises for back muscles. - Previous epidural steroid injections (ESIs) were ineffective; patient had approximately 4-5 injections without relief. - Ordered a selective nerve root block targeting the L5 nerve on the left side to assess for potential surgical intervention. - Patient advised to monitor and report any relief or changes in pain following the injection. - Follow-up with Dr. Reed to evaluate response to the selective nerve root block. Patient specific-risk factors: Obesity (BMI > 30): Patient's last recorded BMI is > 30 (BMI 32.41 kg/m2). Obesity is associated with higher risk of jessica-operative complications for spine surgery patients. Importance of weight loss was discussed with patient and plan for patient to increase exercise and monitor caloric intake to maintain a healthy weight was discussed. Actions Based on the Above Information: Discussed weight management Subjective Chief Complaint: History of Present Illness: Dereje is a 39-year-old male presenting with chronic lower back pain radiating to the legs. 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 He experiences significant stiffness upon waking, requiring a warm shower to loosen up. Throughout the day, his mobility improves, but the dull pain persists. He does not engage in morning stretching exercises. He describes intermittent episodes of severe pain, during which the back pain intensifies and radiates down the left leg. These episodes occur approximately once every six months, more frequently in colder weather, and are triggered by minimal movements following heavy lifting. During these episodes, he is often housebound for 1-2 days and requires 1-1.5 weeks to return to normal activities. He notes that the pain is worse in the winter and less frequent in the summer. Dereje has undergone 4-5 injections in [place], involving three needles on each side of the spine under fluoroscopy, which did not provide relief. He has not tried physical therapy, muscle relaxants, or gabapentin. Pain medications have been ineffective. His primary care physician suggested considering surgical options due to worsening disc protrusion observed on MRI. Musculoskeletal: (+) low back pain, (+) muscle spasms, (+) morning stiffness Neurological: (+) shooting pain radiating to left thigh (occasional right thigh) Questionnaire Generated HPI Possible Spine-Related Symptoms: Pain Symptom Onset:More than 5 years Symptom Location(s): Neck;Back Symptom Laterality: Both sides, but the left side is worse than the right side Aggravating Factors: Sitting;Standing;Lying down;Bending forward/backward;Pulling/pushing Alleviating Factors: Exercising/stretching/massage Non-Surgical Therapies Tried: Home exercise program;Physical Therapy;Epidural steroid injections;Muscle relaxers Prior Spine Surgery(s): They report no history of prior spine surgery. Image annotated by patient with symptom distribution: Details on Prior Non-Surgical Therapies Attempted: Physical therapy: Approximate number of sessions: 10 or more Approximate last session date: Within the last 12 months Epidural Spinal Injection(s): Approximate number of injections: 3 or more Approximate date of last injection: More than 1 year ago Percentage of relief (I.e. 100% = complete relief/no pain): Duration of relief: No relief Philip Florentino MD , have reviewed the above patient-reported information and have reviewed it with the patient. Major Risk Factors Notable surgical risk factors: Smoking status: Never BMI:32.41 kg/m2. Patient's BMI would meet criteria for obesity given BMI >= 30 Current Anticoagulation/Antiplatelet Use: No Obesity Moderate Risk BMI: 32.41 kg/m2 High: BMI > 40 Moderate: BMI 30-40 Normal: BMI < 30 Diabetes normal High: A1C > 8 Moderate: A1C 7-8 Normal: A1C < 7 Hx of DVT / PE normal High: dx of DVT / PE Normal: no dx of DVT / PE Smoking normal Last Status: Never High: Current smoker Normal: Non smoker Narcotics Use normal High:NarxCare >=300 Moderate: 100-299 Normal: 0-99 Depression normal High: PHQ-9 >14 Moderate: PHQ-9 5-14 Normal: PHQ-9 < 5 Data from [facility] Epic on prior therapies: Last PT session: No date on file in last 365 days Last Epidural Steroid Injection: No epidural injection on file for last 365 days Last Spine Surgery: No history of prior spine surgery in search of available [facility] records Objective PHYSICAL EXAM BP 121/80 Pulse 76 Ht 182.9 cm (6') Wt 108.4 kg (238 lb 15.7 oz) SpO2 98% BMI 32.41 kg/m General: No acute distress. MSK/Ext: Gait normal; able to walk on heels and toes; able to cross right leg over left, difficulty crossing left leg over right. Back: Paraspinal muscle spasm noted bilaterally. Results: Imaging: - MRI Lumbar Spine (most recent): - Mild disc bulges at L1-L2, L2-L3, L3-L4, L4-L5, and L5-S1 - Small annular tear at L4-L5 - Mild left-sided foraminal narrowing - Overall described as mild severity - MRI Lumbar Spine (previous): - Discs noted to have moved out a couple millimeters compared to this most recent imaging documented in this encounter [facility] 10-31-2024 Instructions Destiny Braun, DO - 10/31/2024 2:36 PM EST Call [phone] to schedule spine surgery consultation. documented in this encounter [facility] 10-31-2024 History of Present illness Narrative Images from the original note were not included. [facility] Neu[facility] - Medical Spine Initial Exam SUBJECTIVE HISTORY OF PRESENT ILLNESS: Dereje Mancera is a 39 year old male who presents with a chief complaint of low back and leg pain and is seen in consultation requested by Dr. Jassi Hart for an opinion regarding above complaints. My final recommendations will be communicated back to the requesting physician by way of shared medical record or letter via [place] mail. Accompanied by his . Spine Surgery triage chart review was completed and patient was recommended to see medical spine interventionalist for conservative treatment and was scheduled here today. Chronic low back pain for at least 10 years (2014). Notes h/o sports injury age 7. Constant dull pain is located midline lower lumbar, might go away briefly in the Summer, worse with heavy lifting. Intermittent flare ups of more severe pain in which he has difficulty moving and weight bearing for a few days. This occurs around 2-3 times per winter, but flare ups have increased. Flare ups occur right or left low back, radiates up back to shoulder blade area, and can radiate down LLE posteriorly to the knee, sometimes right buttock. Associated with numbness in the LLE region of pain, sometimes tingling in left toes. Denies LE weakness, but will have difficulty walking due to pain. Denies bowel/bladder incontinence or saddle anesthesia. The pain is currently 3-4/10. The pain can get to 10/10 at the highest and 0-1/10 at the lowest. PAIN EVALUATION No data found in the last 1 encounters. Pain Radiation: As above Aggravating Factors: Worse in the morning Worse in cold weather Bending, lifting Alleviating Factors: Sit on heating pad Stretches Current Treatment: Medications None Therapies PT HEP stretches Heat Prior Treatment: Medications Toradol IM PRN during pain flares - helped Ibuprofen Meloxicam 15 mg - mild relief Flexeril 10 mg - didn't help Gabapentin 300 mg in 2019 - can't recall response Therapies PT: [facility] 1-2 years ago without relief Prior spine interventions: -Lumbar epidural steroid injections under fluoroscopy with Dr. Arceo - were not helpful. Prior spine surgery: none Previously treated by: -Pain Management Dr. Jassi Hart, [facility]. Per patient, provider did not recommend injections and recommended patient see spine surgery. -Pain Management [facility] Kobi Gonzalez ID [id number] for low back pain. Recommended Gabapentin 300 mg TID. 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 Higher percentile rankings indicate better function/quality of life. 50th percentile is the average of the general population and indicates half of respondents had a worse score. Depression Screening: PHQ-9 Self-Harm (Item 9) response options: 0 Not at all 1 Several days 2 More than half the days 3 Nearly every day PHQ-9 Levels: 0-4 No - mild depression 5-9 Mild depression 10-14 Moderate depression 15-19 Moderately severe depression 20-27 Severe depression There is no problem list on file for this patient. No past medical history on file. No past surgical history on file. No family history on file. ALLERGIES Not on File CURRENT MEDICATIONS: aspirin-caffeine (DELPHINE BACK AND BODY) 500-32.5 mg tab Take by mouth as directed. cyclobenzaprine (FLEXERIL) 10 mg tablet Take 1 tablet by mouth every 12 hours. meloxicam (MOBIC) 15 mg tablet Take 15 mg by mouth once daily. REVIEW OF SYSTEMS: 14 systems reviewed and otherwise negative unless mentioned above. OBJECTIVE: PHYSICAL EXAM BP 142/85 Pulse 79 Wt 109.5 kg (241 lb 6.5 oz) GENERAL APPEARANCE: Well nourished, well developed, and no apparent distress. NEURO PSYCH: Patient oriented to person, place, and time. Mood pleasant. Benign affect. CARDIOVASCULAR: Palpable pulses. No edema noted. RESPIRATORY: non-labored breathing, no grunting/flaring/retractions SKIN: Head, neck, trunk, and extremities dry, intact and without lesions. MUSCULOSKELETAL VISUAL INSPECTION Posture: normal posture and alignment PALPATION: No tenderness to palpation lumbar spine SPINE ROM: LUMBAR ROM: Flexion to ankles without pain, but he says he would develop pain if stayed there prolonged. Mild midline lumbosacral pain with extension and rotation. MUSCLE BULK: Normal and symmetrical in the upper & lower extremities. MUSCLE TONE: Normal. MOTOR: 5/5 bilateral hip flexion, knee flexion, knee extension, ankle dorsiflexion, plantarflexion, EHL. SENSORY: sensation intact to light touch BLE REFLEXES: 2+ bilateral patella R>L. 2+ BL achilles. 1+ right medial hamstring, absent on left. LONG TRACT SIGNS: No clonus. GAIT: Non-antalgic. Able to stand on toes and heels. PERIPHERAL JOINT ROM: HIP ROM: Full ROM Without Pain STRAIGHT LEG TEST: negative bilateral Hip: Negative BL FAITH, FADIR SI joint: Negative BL FAITH Lumbar facet loading: Negative bilateral. Data Review: All images/reports listed below were personally reviewed by me unless otherwise indicated. [facility] records independently reviewed Imaging and outside records independently reviewed 09/02/2024 MRI lumbar spine without contrast, [facility]: Paraspinal area: Normal with no visible mass. Bones: Normal alignment with no acute fracture or spondylolisthesis. Cord/cauda equina: Normal caliber, contour, and signal intensity. T12-L1: No significant disc/facet abnormality, spinal stenosis or foraminal stenosis. L1-2: Disc space narrowing and disc desiccation. Posterior disc herniation of protrusion type extending up to 5.1 mm. No definite central or foraminal stenosis. L2-3: Early degenerative disc disease is present without focal protrusion or neural impingement. L3-4: Moderate degenerative disc disease is present without visible neural impingement. L4-5: Disc space narrowing and disc desiccation. Posterior central subligamentous disc herniation extending posteriorly 4 mm with inferior migration up to 4.4 mm, sagittal image #8. No central or foraminal stenosis. L5-S1: Moderate disc space narrowing and disc desiccation. Posterior broad-based disc herniation extending up to 4 mm. Facet osteoarthropathy. No central canal or right foraminal stenosis. Mild narrowing of the left neural foramen, sagittal image 4. Impression: Degenerative changes with disc herniations at L1-2, L4-5 and L5-S1. Mild left L5-S1 foraminal stenosis. 11/16/2019 MRI lumbar spine without contrast, report only: Impression: Multilevel disc bulging, left L5-S1 lateral recess disc herniation, minimal stenosis. 05/28/2015 MRI lumbar spine without contrast,[facility], report only: Impression: Disc herniations at L4-5 and L5-S1. No significant central canal or foraminal stenosis. ASSESSMENT/PLAN DIAGNOSIS: M51.372 Degeneration of intervertebral disc of lumbosacral region with discogenic back pain and lower extremity pain (primary encounter diagnosis) M54.17 Lumbosacral neuritis ASSESSMENT: Dereje Mancera is a 39 year old male with no significant PMH, presenting for chronic low back pain since at least 2014. Constant dull pain is located midline lower lumbar. Intermittent flare ups of more severe pain in which he has difficulty moving and weight bearing for a few days. Flare ups occur around 2-3 times per winter and involve right or left low back, radiates up back to shoulder blade area, and can radiate down LLE posteriorly to the knee, sometimes right buttock. Associated with numbness in the LLE region of pain, sometimes tingling in left toes. Denies LE weakness. MRI lumbar spine shows L4-5 and L5-S1 disc displacement with mild canal/lateral recess stenosis, but without any outright nerve root compression. Suspect patient's pain is discogenic. He has not responded to LESI in the remote past and these would be hard to plan given his intermittent and brief exacerbations, but could still be considered. He has not benefited from prior PT and has had minimal benefit with medications. He is primarily interested in surgical considerations to avoid future exacerbations of pain. Consult to spine surgery placed today. PLAN: 1) Imaging/Diagnostic Studies: -Imaging reviewed as above. 2) Therapy/Rehabilitation: -Continue PT HEP -Activities and exercise as tolerated. 3) Pharmacological Management: -no changes 4) Spine/MSK Interventions: -none at this time 5) Consultations: -Consult Spine Surgery -Records requested from outside pain management Dr. Hart. 6) Follow -up: -As needed after surgical consultation. -Patient instructed to call/seek urgent medical care with worsening of symptoms or change of neurological status. 7) Future treatment considerations: -LESI SIGNATURE: Destiny Braun DO PATIENT NAME: Dereje Mancera DATE: October 31, 2024 TIME: 1:10 PM documented in this encounter [facility] 10-31-2024 Note HNO ID: [id number] Author: DESTINY BRAUN DO Service: ? Author Type: Physician Type: Progress Notes Filed: 11/19/2024 16:21 Note Text: [facility] [place] [facility] [place] [facility] - Medical Spine Initial Exam SUBJECTIVE HISTORY OF PRESENT ILLNESS: Dereje Mancera is a 39 year old male who presents with a chief complaint of low back and leg pain and is seen in consultation requested by Dr. Jassi Hart for an opinion regarding above complaints. My final recommendations will be communicated back to the requesting physician by way of shared medical record or letter via US mail. Accompanied by his . Spine Surgery triage chart review was completed and patient was recommended to see medical spine interventionalist for conservative treatment and was scheduled here today. Chronic low back pain for at least 10 years (2014). Notes h/o sports injury age 7. Constant dull pain is located midline lower lumbar, might go away briefly in the Summer, worse with heavy lifting. Intermittent flare ups of more severe pain in which he has difficulty moving and weight bearing for a few days. This occurs around 2-3 times per winter, but flare ups have increased. Flare ups occur right or left low back, radiates up back to shoulder blade area, and can radiate down LLE posteriorly to the knee, sometimes right buttock. Associated with numbness in the LLE region of pain, sometimes tingling in left toes. Denies LE weakness, but will have difficulty walking due to pain. Denies bowel/bladder incontinence or saddle anesthesia. The pain is currently 3-4/10. The pain can get to 10/10 at the highest and 0-1/10 at the lowest. PAIN EVALUATION No data found in the last 1 encounters. Pain Radiation: As above Aggravating Factors: Worse in the morning Worse in cold weather Bending, lifting Alleviating Factors: Sit on heating pad Stretches Current Treatment: Medications None Therapies PT HEP stretches Heat Prior Treatment: Medications Toradol IM PRN during pain flares - helped Ibuprofen Meloxicam 15 mg - mild relief Flexeril 10 mg - didn't help Gabapentin 300 mg in 2019 - can't recall response Therapies PT: [facility] 1-2 years ago without relief Prior spine interventions: -Lumbar epidural steroid injections under fluoroscopy with Dr. Arceo - were not helpful. Prior spine surgery: none Previously treated by: -Pain Management Dr. Jassi Hart, [facility]. Per patient, provider did not recommend injections and recommended patient see spine surgery. -Pain Management [facility] Kobi Gonzalez ID [id number] for low back pain. Recommended Gabapentin 300 mg TID. 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 Higher percentile rankings indicate better function/quality of life. 50th percentile is the average of the general population and indicates half of respondents had a worse score. Depression Screening: PHQ-9 Self-Harm (Item 9) response options: 0 Not at all 1 Several days 2 More than half the days 3 Nearly every day PHQ-9 Levels: 0-4 No - mild depression 5-9 Mild depression 10-14 Moderate depression 15-19 Moderately severe depression 20-27 Severe depression There is no problem list on file for this patient. No past medical history on file. No past surgical history on file. No family history on file. ALLERGIES Not on File CURRENT MEDICATIONS: aspirin-caffeine (DELPHINE BACK AND BODY) 500-32.5 mg tab Take by mouth as directed. cyclobenzaprine (FLEXERIL) 10 mg tablet Take 1 tablet by mouth every 12 hours. meloxicam (MOBIC) 15 mg tablet Take 15 mg by mouth once daily. REVIEW OF SYSTEMS: 14 systems reviewed and otherwise negative unless mentioned above. OBJECTIVE: PHYSICAL EXAM BP 142/85 Pulse 79 Wt 109.5 kg (241 lb 6.5 oz) GENERAL APPEARANCE: Well nourished, well developed, and no apparent distress. NEURO PSYCH: Patient oriented to person, place, and time. Mood pleasant. Benign affect. CARDIOVASCULAR: Palpable pulses. No edema noted. RESPIRATORY: non-labored breathing, no grunting/flaring/retractions SKIN: Head, neck, trunk, and extremities dry, intact and without lesions. MUSCULOSKELETAL VISUAL INSPECTION Posture: normal posture and alignment PALPATION: No tenderness to palpation lumb (more content not included)... [facility] 10-03-2024 Note HNO ID: [id number] Author: MADONNA WELDON PA-C Service: ? Author Type: Physician Technical Support Specialist Type: Progress Notes Filed: 10/03/2024 22:27 Note Text: Per Triage: Dereje Mancera is a 39 year old male that requests evaluation of spine. Per review, they have symptoms of back pain, bilateral leg pain, little neck pain. Numbness back and legs. Weakness sometimes BMI: 32 Request: 1st available Referring provider: Dr. Jassi Hart Patient out of state: no 2nd opinion: no Prior spine surgery: no CMT: PT Toradol Ketoroac Advil Studies (Reports unless indicated) MRI lumbar spine report 09/02/24: Multilevel spondylosis L4-5 disc bulge Mild left foraminal narrowing at L5-S1 Disposition: Based on triage, recommend patient be scheduled with medical spine provider - interventionalist for a trail of conservative treatment Spine Xrays prior to appt: no Please make sure patient imaging is available for review Madonna Weldon PA-C [facility] 10-03-2024 History of Present illness Narrative Per Triage: Dereje Mancera is a 39 year old male that requests evaluation of spine. Per review, they have symptoms of back pain, bilateral leg pain, little neck pain. Numbness back and legs. Weakness sometimes BMI: 32 Request: 1st available Referring provider: Dr. Jassi Hart Patient out of state: no 2nd opinion: no Prior spine surgery: no CMT: PT Toradol Ketoroac Advil Studies (Reports unless indicated) MRI lumbar spine report 09/02/24: Multilevel spondylosis L4-5 disc bulge Mild left foraminal narrowing at L5-S1 Disposition: Based on triage, recommend patient be scheduled with medical spine provider - interventionalist for a trail of conservative treatment Spine Xrays prior to appt: no Please make sure patient imaging is available for review Madonna Weldon PA-C Patient name: Dereje Mancera Are you being referred by a Center for [facility] Provider or Pain Management Provider at [facility]? No If answer is YES please schedule directly with surgeon, triage does not need to be completed. Is this a self-referral No If not, who is the Referring Provider Dr. Jassi Hart Is this a 2nd opinion from another spine surgeon? No Were you offered surgery? No MRI/CT/myelogram within 12 months? Yes If NO , please refer to medical spine or PCP to complete above imaging, triage does not need to be completed If YES, please ask for the name/address of the facility where the MRI/CT/myelogram was completed: The [address] [address] MRI/CT/myelogram viewable in Epic: No If not, please provide [phone] to fax in imaging reports for review. Also, please inform patient to hand carry imaging disc to appointment. XR (spine) within 12 months: No If YES, please ask for the name/address of the facility where the XR was completed: Dr. Andujar's patients: Have you had previous EMG/Nerve Conduction Study, Ultrasound, or MRI for these same symptoms? If YES, please ask for the name/address of the facility where they were completed: Requested provider (First and Last name): unknown Are you interested in a virtual visit if offered? 1. Where are you having symptoms related to this visit? Lumbar Spine Back pain Yes Leg pain Yes bilateral Arm pain No Neck pain Yes little bit 2. Are you having any of the following symptoms: Difficulty walking No Numbness Yes sometimes/lower back, bilateral legs Weakness Yes sometimes Trouble using your hands? No 3. Have you had any injections or physical therapy in the last 12 months? Yes If YES then please ask for the name/address of the facility where the injections and/or physical therapy was completed PT: [facility] [address] [id number] Have you tried any other kinds of non-surgical treatments in the last 12 months? (For example: NSAIDS, muscle relaxants, analgesics, oral steroids, Chiropractor, Acupuncture): Toradol, Ketorolac, Advil 4. Are you currently taking daily prescribed narcotic medications for your current symptoms (For example Oxycodone, Hydrocodone, Tramadol, Morphine, Other)? No 5. Have you had previous spinal surgery for this same symptoms? No If YES please ask for the name of facility/address of where the surgery was completed: Additional Comments [phone] documented in this encounter [facility] 09-07-2024 Note HNO ID: [id number] Author: ?, ?, ? Service: ? Author Type: ? Type: Progress Notes Filed: 10/03/2024 22:27 Note Text: Patient name: Dereje Mancera Are you being referred by a [place] [facility] Provider or Pain Management Provider at [facility]? No If answer is YES please schedule directly with surgeon, triage does not need to be completed. Is this a self-referral No If not, who is the Referring Provider Dr. Jassi Annaitis Is this a 2nd opinion from another spine surgeon? No Were you offered surgery? No MRI/CT/myelogram within 12 months? Yes If NO , please refer to medical spine or PCP to complete above imaging, triage does not need to be completed If YES,? please ask for the name/address of the facility where the MRI/CT/myelogram was completed: [facility] [address] [id number] MRI/CT/myelogram viewable in Epic: No If not, please provide [phone] to fax in imaging reports for review. Also, please inform patient to hand carry imaging disc to appointment. XR (spine) within 12 months: No If YES,? please ask for the name/address of the facility where the XR was completed: Dr. Andujar's patients: Have you had previous EMG/Nerve Conduction Study, Ultrasound, or MRI for these same symptoms? If YES,? please ask for the name/address of the facility where they were completed: Requested provider (First and Last name): unknown Are you interested in a virtual visit if offered? 1. Where are you having symptoms related to this visit? Lumbar Spine Back pain Yes Leg pain Yes bilateral Arm pain No Neck pain Yes little bit 2. Are you having any of the following symptoms: Difficulty walking No Numbness Yes sometimes/lower back, bilateral legs Weakness Yes sometimes Trouble using your hands? No 3. Have you had any injections or physical therapy in the last 12 months? Yes If YES then please ask for the name/address of the facility where the injections and/or physical therapy was completed PT: The [place] [address] [id number] Have you tried any other kinds of non-surgical treatments in the last 12 months? (For example: NSAIDS, muscle relaxants, analgesics, oral steroids, Chiropractor, Acupuncture): Toradol, Ketorolac, Advil 4. Are you currently taking daily prescribed narcotic medications for your current symptoms (For example Oxycodone, Hydrocodone, Tramadol, Morphine, Other)? No 5. Have you had previous spinal surgery for this same symptoms? No If YES? please ask for the name of facility/address of where the surgery was completed: Additional Comments [phone] [facility] 08-30-2024 Telephone encounter Note Please put torodal 60mg in , bia gave 08-22-24 rt buttock [facility] 08-30-2024 Miscellaneous Notes Please put torodal 60mg in , bia [...] hold the meloxicam. Phone call to the [facility] and they are ok with this.spoke with catherine. Pt reached out to them earlier today, provider not available. documented in this encounter [facility] 08-22-2024 Telephone encounter Note sent [facility] 08-22-2024 Miscellaneous Notes sent documented in this encounter [facility] 08-22-2024 Telephone encounter Note Daughter / in , miserable with [...] hold the meloxicam. Phone call to the [facility] and they are ok with this.spoke with catherine. Pt reached out to them earlier today, provider not available. [facility] 08-15-2024 Telephone encounter Note Pt was seen today, states he was prescribed a muscle relaxor and their office is going to try and get an updated MRI ordered pending insurance approval [facility] 08-15-2024 Miscellaneous Notes Pt was seen today, states he was prescribed a muscle relaxor and their office is going to try and get an updated MRI ordered pending insurance approval Did he get scheduled with pain management? documented in this encounter [facility] 08-15-2024 Telephone encounter Note Did he get scheduled with pain management? [facility] 08-10-2024 History of Present illness Narrative Dereje Mancera is a 39 y.o. male presents with [...] stenosis LABS- 05/2024 WELLNESS- 05/30/2024 DENTIST- none COSMETICS COUNTER MANAGER- Daria/Brandon REDEYE GUNNER- Wilkin for insoles BELT PRESS OPERATOR- Richa Bethea/BRENNA SUBJECTIVE: MEDICATIONS: Current Outpatient Medications Medication Instructions Aspirin-Caffeine (Delphine Back & Body) 500-32.5 MG tablet Take [...] months (around 11/08/2024). documented in this encounter [facility] 05-30-2024 History of Present illness Narrative Dereje Mancera is a 38 y.o. male presents with [...] willing to update today WELLNESS- 05/30/2024 DENTIST- zhao COSMETICS COUNTER MANAGER- Daria/Brandon REDEYE GUNNER- Ute for insoles BELT PRESS OPERATOR- Richa Bethea/[facility] SUBJECTIVE: MEDICATIONS: Current Outpatient Medications Medication Instructions Aspirin-Caffeine (Delphine Back & Body) 500-32.5 MG tablet Oral [...] 05/30/2025) for wellness. documented in this encounter [facility] 05-05-2024 History of Present illness Narrative Images from the original note [...] - Anterior, Torso - Posterior (Back) Scattered granado macules in sun-exposed areas. The patient was [...] Area cleansed with alcohol, Milia extracted with Kimberly comedone extractor. Post Procedure: Area cleansed. Next Visit: 1 year skin exam documented in this encounter [facility] Healthcare Evaluation note Diagnosis Right-sided low back pain with right-sided sciatica, unspecified chronicity- Primary Displacement of lumbar intervertebral disc without myelopathy Acute bilateral low back pain with bilateral sciatica documented in this encounter [facility] HealthcareEvaluation note* Diagnosis Melanocytic nevus of trunk- Primary Benign neoplasm of skin of trunk, except scrotum Lentigines Angioma of skin Neoplasm of skin Surgery, elective Unspecified elective surgery for purposes other than remedying health states documented in this encounter [facility] HealthcareEvaluation note* Diagnosis Wellness examination- Primary Screening [...] joint, shoulder region documented in this encounter [facility] HealthcareEvaluation note* Diagnosis Displacement of lumbar intervertebral disc without myelopathy documented in this encounter [facility] HealthcareEvaluation note* Diagnosis Displacement of lumbar intervertebral disc without myelopathy documented in this encounter [facility] HealthcareEvaluation note* Diagnosis Displacement of lumbar intervertebral disc without myelopathy- Primary documented in this encounter [facility] HealthcareEvaluation note* Diagnosis Displacement of lumbar intervertebral disc without myelopathy- Primary [facility] Degeneration of intervertebral disc of lumbosacral region with discogenic back pain and lower extremity pain- Primary Lumbosacral neuritis Thoracic or lumbosacral neuritis or radiculitis, unspecified [facility] Radiculopathy, lumbar region- Primary Thoracic or lumbosacral neuritis or radiculitis, unspecified documented in this encounter [facility] Summary Purpose Family History No Family History [...] Records FoundNo Status Records FoundNo Status Records FoundNo Status Records FoundNo Status Records Found INFORMATION SOURCE (unrecogn ized section and content) DATE CREATED AUTHOR 06/12/2020 [facility] DATE CREATED AUTHOR AUTHOR'S ORGANIZ ATION 08/13/2024 [facility] DATE CREATED AUTHOR AUTHOR'S ORGANIZ ATION 09/17/2024 [facility] DATE CREATED AUTHOR AUTHOR'S ORGANIZ ATION 11/20/2024 [facility] DATE CREATED AUTHOR AUTHOR'S ORGANIZ ATION 12/28/2024 [facility] Reason for Visit (unrecogniz ed section and content) Reason Comments Back Pain Reason Onset Date Comments Back Pain 08/15/2024 Reason Comments Suspicious Skin Lesion Skin Check Reason Comments Shoulder Pain wellness Reason Onset Date Comments Med Refill 08/22/2024 Reason Comments Med Change Request Reason Comments New Patient Chronic Low Back Alexander n Reason Comments New Patient Degeneration of inte rvertebral disc of lumbosacral region Care Teams (unrecognized sec tion and content) Director Of First Impressions Relationship Specialty Start Date End Date Adrian Malhotra DO [address] [place], [place] [phone] PCP - General Family Medicine 02/13/23 Olya Nixon, HISTORY CARD CLERK [address] [place] [address] Nurse Practitioner Family Medicine 02/13/23 Director Of First Impressions Relationship Specialty Start Date End Date Adrian Malhotra DO [address] [place], [place] [phone] PCP - General Family Medicine 02/13/23 Olya Nixon, HISTORY CARD CLERK [address] [place], [place] [phone] Nurse Practitioner Family Medicine 02/13/23 Director Of First Impressions Relationship Specialty Start Date End Date Adrian Malhotra DO [address] [place], [place] [phone] PCP - General Family Medicine 02/13/23 Olya Nixon, HISTORY CARD CLERK [address] [place] [address] Nurse Practitioner Family Medicine 02/13/23 Director Of First Impressions Relationship Specialty Start Date End Date Adrian Malhotra DO [address] [place] [address] PCP - General Family Medicine 02/13/23 Olya Nixon, HISTORY CARD CLERK [address] [place] [address] Nurse Practitioner Family Medicine 02/13/23 Director Of First Impressions Relationship Specialty Start Date End Date Adrian Malhotra DO [address] [place] [address] PCP - General Family Medicine 02/13/23 Olya Nixon, HISTORY CARD CLERK [address] [place] [address] Nurse Practitioner Family Medicine 02/13/23 Director Of First Impressions Relationship Specialty Start Date End Date Adrian Malhotra DO [address] [place] [address] PCP - General Family Medicine 02/13/23 Olya Nixon, HISTORY CARD CLERK [address] [place] [address] Nurse Practitioner Family Medicine 02/13/23 Director Of First Impressions Relationship Specialty Start Date End Date Jassi Hart MD [address] [facility] [address] [place] [address] Pain Management 09/06/24 Director Of First Impressions Relationship Specialty Start Date End Date Jassi Hart MD [address] [facility] [address] [place] [address] Pain Management 09/06/24 Director Of First Impressions Relationship Specialty Start Date End Date Jassi Hart MD [address] [place] [address] [address] [place] [address] Pain Management 09/06/24 Source Comments (unrecognize d section and content) In the event this informatio n is protected by the Federal Confidentiality of Alcohol and Drug Abuse Patient Records regulations: The Federal rules restrict any use of the information to criminally investigate or prosecute any alcohol or drug abuse patient.[facility] the event this information is protected by the Federal Confidentiality of Alcohol and Drug Abuse Patient Records regulations: The Federal rules restrict any use of the information to criminally investigate or prosecute any alcohol or drug abuse patient.[facility] the event this information is protected by the Federal Confidentiality of Alcohol and Drug Abuse Patient Records regulations: The Federal rules restrict any use of the information to criminally investigate or prosecute any alcohol or drug abuse patient.[facility] FOR RECORDS PERTAINING TO PATIENTS WHO ARE [...] BE BASED ON THE PRIMARY CLINICAL RECORDS. [employer] [facility]. provides no warranty or guarantee of the accuracy or completeness of information in this document.
[2025-06-05 14:40] VITALS: BP 138/88; PULSE 75; TEMP 36.6; O2SAT 96; BMI 31.9
--- NOTE | 2025-06-05 14:46 | PC.NURSE ---
LAC pain with movement and hand movement. area appears slightly swollen and pt able to bend at AC site
--- NOTE | 2025-06-05 14:56 | XR_ITS ---
The [address] [address] Patient Name: YESSICA MANCERA MRN: [id number] date: 1985 Sex: M Assigned Patient Location: ER Current Patient Location: ED.MAIN Accession/Order Number: [id number] Exam Date: 06/05/2025 15:10 Report Date: 06/05/2025 15:32 At the request of: TG TYLER Procedure: XR elbow LT min 3V LEFT ELBOW - 3 views CLINICAL HISTORY: injury bicep area distal COMPARISON: None FINDINGS: No elbow joint effusion. No acute bony process. Joint spaces appear maintained. XR/XR elbow LT min 3V IMPRESSION: NO ACUTE BONY PROCESS. Impression dictated by: Mod[place] Billy Jr.ORichard 06/05/2025 3:32 PM Dictation Location: [place] [address] Electronically authenticated by: [id number] Date: 06/05/2025 15:32
--- NOTE | 2025-06-05 15:06 | ED_ITS ---
HPI HPI - Extremity Injury (Upper) General Chief Complaint: Extremity Injury, Upper Stated Complaint: L ARM PAIN AFTER POPPING Time Seen by Provider: 06/05/25 14:45 Source: patient Mode of arrival: walk-in History of Present Illness HPI narrative: The 39 year old patient presents after feeling a pop in his left elbow while taking his boat out and lifting on the rig area. H He reports minimal pain, describing a cramping sensation in the left upper extremity when he fully extends the arm, which resolves after a few seconds. He denies any numbness, tingling, or prior injury to the area. He has no shoulder pain, no pain in the posterior arm, forearm, or hand. He reports good overall range of motion and no distal neurovascular symptoms. MD complaint: injury to: Reports elbow Related Data Home Medications ?Medication ?Instructions ?Recorded ?Confirmed No Known Home Medications 06/05/2502/22 Allergies Allergy/AdvReac Type Severity Reaction Status Date / Time No Known Drug Allergies Allergy Verified 08/15/24 15:03 PFSH PFS Social History Little interest or pleasure in doing things: not at all Feeling down, depressed, or hopeless: not at all Exam Narrative Exam Narrative: * General:?Alert, oriented, in no acute distress. * Left Upper Extremity:?Mild swelling in the proximal biceps area. No tenderness at the biceps head or bicipital groove. Good range of motion at the elbow. Good resistance with elbow flexion and supination. No pain in the forearm or hand. No shoulder tenderness. No ecchymosis or deformity. Distal pulses intact. No numbness or tingling. * Neurovascular:?Sensation intact distally. Capillary refill normal. * Other:?No other injuries noted. Constitutional Vital Signs, click to edit/add: Last Vital Signs Temp 97.9 F 06/05/25 14:40 Pulse 58 L 06/05/25 15:36 Resp 15 06/05/25 15:36 BP 143/93 H 06/05/25 15:36 Pulse Ox 98 06/05/25 15:36 O2 Del Method Room Air 06/05/25 15:36 Course Vital Signs Vital signs: Vital Signs Temperature 97.9 F 06/05/25 14:40 Pulse Rate 75 06/05/25 14:40 Respiratory Rate 18 06/05/25 14:40 Blood Pressure 138/88 06/05/25 14:40 Pulse Oximetry 96 06/05/25 14:40 Oxygen Delivery Method Room Air 06/05/25 14:40 Temperature 97.9 F 06/05/25 14:40 Pulse Rate 58 L 06/05/25 15:36 Respiratory Rate 15 06/05/25 15:36 Blood Pressure 143/93 H 06/05/25 15:36 Pulse Oximetry 98 06/05/25 15:36 Oxygen Delivery Method Room Air 06/05/25 15:36 MDM - Extremity Injury (Upper) MDM Narrative Medical decision making narrative: The patient experienced a sudden pop in the left elbow with subsequent mild swelling and cramping discomfort, but minimal pain and preserved function. Exam revealed mild swelling in the proximal biceps, but no significant tenderness, deformity, or loss of strength. He maintains good resistance with elbow flexion and supination, and distal neurovascular status is intact. X-ray was obtained to rule out avulsion fracture or other acute bony injury and was negative for acute findings. There is no evidence of a proximal biceps tendon rupture on exam or imaging. The patient is stable, with no concerning features for neurovascular compromise or significant soft tissue injury. He was evaluated by Dr. Morrison. The patient was advised to follow up with his primary care provider for further evaluation or imaging if symptoms persist or worsen. Discharged in stable condition. Discharge Plan Discharge Chief Complaint: Extremity Injury, Upper Clinical Impression: Strain of left biceps Patient Disposition: Home, Self-Care Time of Disposition Decision: 15:31 Mode of Transportation: Private Vehicle Prescriptions / Home Meds: No Action No Known Home Medications Print Language: Kinyarwanda Instructions: Muscle Strain (ED) Additional Instructions: avoid any lifting more than 10lbs with left UE at elbow Referrals: Doe Rogers DO [Physician, Orthopedics] - As soon as possible Discharge Date/Time: 06/05/25 15:37
[2025-06-05 15:36] VITALS: BP 143/93; PULSE 58; O2SAT 98
== END 2025-06-05 15:37 | disposition home or self-care (01) ==
PROVIDERS: Emergency Provider Emergency Medicine; PCP Nurse Practitioner
DX: S46.212A Strain of muscle, fascia and tendon of other parts of biceps, left arm, initial encounter (principal); X58.XXXA Exposure to other specified factors, initial encounter
CPT/HCPCS: 73080; 99283